=== PATIENT | male | born 1955 | race Caucasian/White ===

== ENCOUNTER 2018-04-24 01:29 | Outpatient (CLI) | payer BC, SELFPAY ==
--- NOTE | 2018-04-24 06:44 | DI.US_ITS ---
SYMPTOM/DIAGNOSIS: ABD AND RUQ PAIN, R10.11, R10.9 ABDOMEN ULTRASOUND: Routine examination. The aorta and IVC are unremarkable. The liver is normal in size. There is diffuse increased echogenicity of the liver most suggestive of hepatic steatosis. No hepatic mass is seen. The gallbladder is negative. No gallbladder wall thickening, sludge or pericholecystic fluid is seen. No gallstones are present. The common duct is within normal limits at .4 cm. The pancreas appears grossly unremarkable sonographically. The spleen is unremarkable. The kidneys are normal in size. Bilateral simple renal cysts are present. No solid renal mass or obstruction is identified. IMPRESSION: Hepatic steatosis. No evidence of cholelithiasis or biliary ductal dilatation.
== END 2018-04-24 01:49 ==
PROVIDERS: PCP Family Medicine; Visit Provider Family Medicine
DX: R10.11 Right upper quadrant pain (principal); K76.0 Fatty (change of) liver, not elsewhere classified
CPT/HCPCS: 76700

== ENCOUNTER 2018-05-15 09:43 | Outpatient (CLI) | payer BC, MEDICARE, SELFPAY ==
[2018-05-15 12:00] LABS: ALT 38 U/L (12-78); AST 28 U/L (15-37); Alkaline Phosphatase 69 U/L (46-116); Bilirubin, Direct 0.16 mg/dL (0.00-0.20); Bilirubin, Total 0.5 mg/dL (0.2-1.0); CREATININE 0.94 mg/dL (0.70-1.30); Glucose 99 mg/dL (70-100); Potassium 4.7 mmol/L (3.5-5.1); Total Protein 7.4 g/dL (6.4-8.2)
[2018-05-15 12:18] LABS: Cholesterol 157 mg/dL (50-200); HDL Cholesterol 29 mg/dL (40-60); LDL CHOLESTEROL 99 mg/dL (<100); Triglyceride 150 mg/dL (30-150)
== END 2018-05-15 10:03 ==
PROVIDERS: PCP Family Medicine; Visit Provider Family Medicine
DX: I10 Essential (primary) hypertension (principal); K76.0 Fatty (change of) liver, not elsewhere classified; Z13.220 Encounter for screening for lipoid disorders; E66.9 Obesity, unspecified
CPT/HCPCS: 36415; 80061; 80076; 82947; 83721; 82565; 84132

== ENCOUNTER 2018-11-11 09:08 | Outpatient (CLI) | payer BC, MEDICARE, SELFPAY ==
[2018-11-11 11:22] LABS: CREATININE 0.87 mg/dL (0.70-1.30); Calculated LDL 118 mg/dL; Cholesterol 165 mg/dL (50-200); HDL Cholesterol 35 mg/dL (40-60); Triglyceride 63 mg/dL (30-150)
== END 2018-11-11 09:28 ==
PROVIDERS: PCP Family Medicine; Visit Provider Family Medicine
DX: I10 Essential (primary) hypertension (principal); E78.5 Hyperlipidemia, unspecified
CPT/HCPCS: 36415; 80061; 83721; 82565

== ENCOUNTER 2019-04-20 09:31 | Outpatient (CLI) | payer BC, MEDICARE, SELFPAY ==
[2019-04-20 14:09] LABS: ESR 9 mm/hr (1-20)
[2019-04-21 11:32] LABS: Rheumatoid Factor <7.5 IU/mL (<12.5)
== END 2019-04-20 09:51 ==
PROVIDERS: PCP Family Medicine; Visit Provider Family Medicine
DX: M19.041 Primary osteoarthritis, right hand (principal); M19.042 Primary osteoarthritis, left hand; M79.645 Pain in left finger(s)
CPT/HCPCS: 36415; 85652; 86431

== ENCOUNTER 2019-05-21 01:56 | Outpatient (CLI) | payer BC, MEDICARE, SELFPAY ==
--- NOTE | 2019-05-21 06:55 | DI.US_ITS ---
EXAM: US AAA SCREENING CLINICAL HISTORY: screening for AAA,smoking history,z87.891,z00.00,encounter for annual TECHNIQUE: Ultrasound performed using standard protocol. COMPARISON: US ABDOMEN from 04/24/2018 FINDINGS: Limited abdominal ultrasound was performed for evaluation of a possible abdominal aortic aneurysm. N o abdominal aortic aneurysm seen. Maximal diameter the aorta mid to distal is about 1.9 cm. Common iliac arteries on the right and left are 11 millimeters and 14 millimeters in diameter respectively. IMPRESSION: No evidence of abdominal aortic aneurysm.
== END 2019-05-21 02:16 ==
PROVIDERS: PCP Family Medicine; Visit Provider Family Medicine
DX: Z00.00 Encounter for general adult medical examination without abnormal findings (principal); Z13.6 Encounter for screening for cardiovascular disorders; Z87.891 Personal history of nicotine dependence
CPT/HCPCS: 76706

== ENCOUNTER 2020-05-24 10:26 | Outpatient (CLI) | payer BC, MEDICARE, SELFPAY ==
[2020-05-24 13:19] LABS: ALT 30 U/L (16-63); AST 20 U/L (15-37); Albumin 4.3 g/dL (3.4-5.0); Alkaline Phosphatase 67 U/L (46-116); Bilirubin, Direct 0.13 mg/dL (0.00-0.20); Bilirubin, Total 0.6 mg/dL (0.2-1.0); CREATININE 0.9 mg/dL (0.70-1.30); Potassium 5.1 mmol/L (3.5-5.1); Total Protein 7.7 g/dL (6.4-8.2)
[2020-05-24 13:38] LABS: Calculated LDL 81 mg/dL (<100); Cholesterol 141 mg/dL (<200); HDL Cholesterol 44 mg/dL (40-60); Triglyceride 80 mg/dL (<150)
[2020-05-24 22:32] LABS: PSA, Screening 2.3 ng/mL (0.0-4.5)
== END 2020-05-24 10:27 | disposition home or self-care (01) ==
LOC: LOS 10:27
PROVIDERS: PCP Family Medicine; Visit Provider Family Medicine
DX: I10 Essential (primary) hypertension (principal); E78.5 Hyperlipidemia, unspecified; G72.89 Other specified myopathies; Z12.5 Encounter for screening for malignant neoplasm of prostate
CPT/HCPCS: 36415; 80061; 80076; 84153; 82565; 84132

== ENCOUNTER 2020-09-20 02:15 | Outpatient (CLI) | payer BC, MEDICARE, SELFPAY ==
--- NOTE | 2020-09-20 06:45 | DI.RAD_ITS ---
Exam(s) XR FOOT LT COMPLETE EXAM: XR FOOT LT COMPLETE CLINICAL HISTORY: josé midfoot pain,M79.672,M79.671. TECHNIQUE: 2D digital imaging was performed. COMPARISON: No exams were available for comparison FINDINGS: No acute fracture or dislocation is present. There are mild degenerative changes of the foot particu larly at the 1st MTP joint. No suspicious lytic or sclerotic lesion is seen. Atherosclerosis is pre sent. There is a small plantar calcaneal spur. IMPRESSION: Mild degenerative changes of the left foot. DATA REPOSITORY: RADIATION DOSE DELIVERED:
--- NOTE | 2020-09-20 06:45 | DI.RAD_ITS ---
Exam(s) XR KNEE RT 3V AP,LAT,NAPOLEON EXAM: XR KNEE RT 3V AP,LAT,NAPOLEON CLINICAL HISTORY: progressive knee pain,M25.561,M25.562. TECHNIQUE: 2D digital imaging was performed. COMPARISON: CR XR KNEE LT 3V AP,LAT,NAPOLEON from 09/20/2020 FINDINGS: Moderate degenerative changes are seen in the right knee with joint space narrowing and periarticular spurring. The findings are most marked in the medial femoral tibial joint. The bones are intact an d normally mineralized. There is a small joint effusion. Atherosclerosis. IMPRESSION: Moderate osteoarthritis of the right knee. DATA REPOSITORY: RADIATION DOSE DELIVERED:
--- NOTE | 2020-09-20 06:45 | DI.RAD_ITS ---
Exam(s) XR KNEE LT 3V AP,LAT,NAPOLEON EXAM: XR KNEE LT 3V AP,LAT,NAPOLEON CLINICAL HISTORY: josé knee pain,M25.561,M25.562. TECHNIQUE: 2D digital imaging was performed. COMPARISON: No exams were available for comparison FINDINGS: There are moderately severe degenerative changes of the left knee with joint space narrowing and flavio articular spurring. The findings are most marked in the medial femoral tibial and patellofemoral jean-pierre nt. Chondrocalcinosis is seen in the femoral tibial joint. There is no joint effusion. Atheroscler osis is present. IMPRESSION: Moderately severe osteoarthritis of the left knee. DATA REPOSITORY: RADIATION DOSE DELIVERED:
--- NOTE | 2020-09-20 06:45 | DI.RAD_ITS ---
Exam(s) XR FOOT RT COMPLETE EXAM: XR FOOT RT COMPLETE CLINICAL HISTORY: josé foot pain,M79.671,M79.672. TECHNIQUE: 2D digital imaging was performed. COMPARISON: No exams were available for comparison FINDINGS: Mild degenerative changes are seen at the 1st MTP joint with joint space narrowing and periarticular spurring. Mild degenerative changes are seen at the talonavicular joint in the articulation of the n avicular with the cuneiform. No acute fracture, dislocation or lytic or sclerotic lesion is seen. T here are dystrophic calcifications seen in the Achilles tendon. Atherosclerosis is present. IMPRESSION: Mild degenerative changes of the right foot. DATA REPOSITORY: RADIATION DOSE DELIVERED:
== END 2020-09-20 02:35 ==
PROVIDERS: PCP Family Medicine; Visit Provider Family Medicine
DX: M25.561 Pain in right knee (principal); M25.461 Effusion, right knee; M25.562 Pain in left knee; M17.0 Bilateral primary osteoarthritis of knee; M79.671 Pain in right foot; M19.071 Primary osteoarthritis, right ankle and foot; M79.672 Pain in left foot; M77.32 Calcaneal spur, left foot; M19.072 Primary osteoarthritis, left ankle and foot
CPT/HCPCS: 73562; 73630

== ENCOUNTER 2020-11-06 03:39 | Outpatient (CLI) | payer BC, MEDICARE, SELFPAY ==
[2020-11-06 08:31] LABS: HCT 45.7 % (40.0-50.0); HGB 15.6 g/dL (13.5-17.5); MCH 30.5 pg (27.0-33.0); MCHC 34.1 % (32.0-36.0); MCV 89.4 fL (80-95); MPV 9.3 fL (8.0-11.0); Platelet Count 166 10^3/uL (130-400); RBC 5.11 10^6/uL (4.36-5.78); RDW 12.1 % (11.8-14.1); RDW-SD 39.8 fL; WBC 6.25 10^3/uL (4.4-10.8)
[2020-11-06 10:07] LABS: Anion Gap 6.9 mmol/L (3-11); BUN 23 mg/dL (7-18); CO2 28.1 mmol/L (21.0-32.0); Calcium 8.7 mg/dL (8.5-10.1); Chloride 106 mmol/L (98-107); Glucose 112 mg/dL (74-106); Potassium 4.2 mmol/L (3.5-5.1); Sodium 141 mmol/L (136-145)
[2020-11-06 11:37] LABS: Source Nasal/Nares
[2020-11-06 16:50] LABS: COVID-19 PCR Negative (Negative)
== END 2020-11-06 03:40 | disposition home or self-care (01) ==
LOC: LBO 03:39
PROVIDERS: PCP Family Medicine; Visit Provider Student in an Organized Health Care Education/Training Program
DX: M25.561 Pain in right knee (principal); M25.562 Pain in left knee; M17.0 Bilateral primary osteoarthritis of knee; Z20.822 Contact with and (suspected) exposure to COVID-19; Z01.818 Encounter for other preprocedural examination; Z01.812 Encounter for preprocedural laboratory examination
CPT/HCPCS: 36415; 80048; 85027; 87635

== ENCOUNTER 2020-11-08 06:18 | Day surgery (SDC) | payer BC, MEDICARE, SELFPAY ==
[2020-11-08] VITALS (10 sets, daily range): BP systolic 99–135; BP diastolic 51–90; PULSE 43–63; RESP 14–20; TEMP 36–36.8; O2SAT 97–100; BMI 28.5
--- NOTE | 2020-11-08 06:59 | ANES.PREOP_ITS ---
General Info Date of Service Date Performed: 11/08/20 Height: 5 ft 8.75 in Weight: 87.2 kg Body Mass Index (BMI): 28.5 Surgical Procedure: Operation Date: 11/08/20 07:40 Proposed Procedures Side Surgeon p Knee Total Arthroplasty Right David Forrester MD Meds Allergies and Home Medications Allergies Allergy/AdvReac Type Severity Reaction Status Date / Time No Known Drug Allergies Allergy Verified 11/07/20 12:37 Home Medication Medication Instructions Recorded alprostadil 40 mcg intracavernosal 10 mcg IC PRN #1 each 10/15/19 kit citalopram 40 mg tablet 40 mg PO DAILY #90 tab 05/24/20 lisinopril 10 mg tablet 5 mg PO DAILY #45 tab 05/24/20 omeprazole 40 mg capsule,delayed 40 mg PO DAILY PRN #90 tab-cap 05/24/20 release trazodone 100 mg tablet 200 mg PO HS #180 tab 08/23/20 citalopram 20 mg tablet 20 mg PO DAILY #90 tab-cap 09/04/20 rosuvastatin 20 mg tablet 20 mg PO HS #90 tab 09/04/20 tadalafil 5 mg tablet 5 mg PO DAILY #90 tab-cap 09/04/20 tamsulosin 0.4 mg capsule 0.4 mg PO DAILY #90 cap 09/04/20 triamcinolone acetonide 0.5 % 1 applic TOPICAL BID PRN #30 gm 09/04/20 topical ointment sildenafil 100 mg tablet 100 mg PO DAILY PRN #6 tab 09/15/20 acetaminophen 1,000 mg PO Q8H PRN #90 tab 11/08/20 aspirin 81 mg PO BID 30 Days #60 tab 11/08/20 celecoxib [Celebrex] 200 mg PO BID #30 cap 11/08/20 docusate sodium [Colace] 100 mg PO BID #30 cap 11/08/20 gabapentin 300 mg PO QHS #14 cap 11/08/20 oxycodone 5 mg PO Q4H PRN #18 tab 11/08/20 pantoprazole 40 mg PO DAILY 30 Days #30 tab 11/08/20 Current Visit Medications: Current Medications Generic Name Dose Route Start Last Admin Trade Name Freq PRN Reason Stop Dose Admin Acetaminophen 1,000 mg 11/08/20 06:00 Acetaminophen 500 Mg Tab PO PREOP SALVATORE Celecoxib 400 mg 07/21/21 06:00 Celecoxib 200 Mg Cap PO PREOP SALVATORE Gabapentin 300 mg 11/08/20 06:00 Gabapentin 300 Mg Cap PO PREOP SALVATORE Ringer's Solution 1,000 mls @ 80 mls/hr 11/08/20 06:00 IV 12/07/20 23:59 INFUSION SALVATORE Cefazolin Sodium/Dextrose 2 gm in 50 mls @ 100 mls/hr 11/08/20 06:00 Ancef Duplex IVPB 12/07/20 23:59 PREOP SALVATORE Tranexamic Acid 1,000 mg/ 60 mls @ 360 mls/hr 11/08/20 06:00 Sodium Chloride IVPB 11/08/20 23:59 DIRECTED SALVATORE Tranexamic Acid 1,000 mg/ 60 mls @ 360 mls/hr 11/08/20 06:00 Sodium Chloride IVPB 11/08/20 23:59 DIRECTED [facility] IV Miscellaneous Supplies 1 each 11/08/20 06:00 Iv Access IV 12/07/20 23:59 DIRECTED SALVATORE Sodium Chloride 0 ml 11/08/20 06:00 Normal Saline Flush 10 Ml Syr IV 12/07/20 23:59 PRN PRN Sodium Chloride 0 ml 11/08/20 06:00 Normal Saline 10 Ml Vial IJ 12/07/20 23:59 DIRECTED PRN Sterile Water 0 ml 11/08/20 06:00 Water,Injection,Sterile 10 Ml Vial IJ 12/07/20 23:59 DIRECTED PRN PFSH Active Problems Active Problems: Problem Status Onset Code Bilateral primary osteoarthritis of knee M17.0 Bilateral foot pain M79.671, M79.672 Foot pain, left M79.672 Bilateral chronic knee pain M25.561, M25.562, G89.29 Lower urinary tract symptoms (LUTS) R39.9 Prostatitis N41.9 Hand arthritis M19.049 Hypertension I10 Peripheral neuropathy G62.9 Status post arthroscopy of shoulder 11/07/14 Z98.890 Status post rotator cuff repair 11/07/14 Z98.890 Bilateral renal cysts N28.1 Gallbladder Problem K82.9 CAD (coronary artery disease) I25.10 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 MORALES Rotator Cuff Repair 11/07/14; LEFT; DR MORALES 12/20/15; RIGHT; DR. MORALES Tobacco Smoking/Tobacco Use Status: Former Tobacco Use Passive smoking exposure: Yes Second hand exposure: Yes Alcohol Alcohol Intake: former Substance Use Substance use: Socially Substance use type: marijuana Vital Signs and Lab Results Vital Signs Most Recent Vital Signs in EMR: Most Recent Vital Signs Temp Pulse Resp BP Pulse Ox 36.6 C 57 L 16 118/70 97 11/08/20 06:30 11/08/20 06:30 11/08/20 06:30 11/08/20 06:30 11/08/20 06:30 Lab Results Blood Type / Crossmatch: No Data to Display Complete Blood Count: White Blood Count 6.25 10^3/uL (4.4-10.8) 11/06/20 08:20 11/06/20 Red Blood Count 5.11 10^6/uL (4.36-5.78) 11/06/20 08:20 11/06/20 Hemoglobin 15.6 g/dL (13.5-17.5) 11/06/20 08:20 11/06/20 Hematocrit 45.7 % (40.0-50.0) 11/06/20 08:20 11/06/20 Platelet Count 166 10^3/uL (130-400) 11/06/20 08:20 11/06/20 Complete Metabolic Panel: Sodium Level 141 mmol/L (136-145) 11/06/20 08:20 11/06/20 Potassium Level 4.2 mmol/L (3.5-5.1) 11/06/20 08:20 11/06/20 Chloride Level 106 mmol/L (98-107) 11/06/20 08:20 11/06/20 Carbon Dioxide Level 28.1 mmol/L (21.0-32.0) 11/06/20 08:20 11/06/20 Blood Urea Nitrogen 23 mg/dL (7-18) H 11/06/20 08:20 11/06/20 Creatinine 1.0 mg/dL (0.70-1.30) 11/06/20 08:20 11/06/20 Estimated GFR/1.73 m2 >= 60.00 (mL/min/1.73m2) 11/06/20 08:20 11/06/20 Calcium Level 8.7 mg/dL (8.5-10.1) 11/06/20 08:20 11/06/20 Glucose Level 112 mg/dL (74-106) H 11/06/20 08:20 11/06/20 Liver Function Panel: No Data to Display Coagulation Panel: No Data to Display Cardiac Panel: No Data to Display Arterial Blood Gas: No Data to Display Venous Blood Gas: No Data to Display Pancreas Panel: No Data to Display Thyroid Panel: No Data to Display Infectious Disease: Coronavirus (COVID-19)(PCR) Negative (Negative) 11/06/20 08:00 11/06/20 Coronavirus 2019 Source Nasal/Nares 11/06/20 08:00 11/06/20 Blood Cultures: No Data to Display Toxicology Panel: No Data to Display Anesthesia Assessment and Plan Anesthesia History Personal History: No History of Anesthesia Complications Family History: No Family History of Anesthesia Complications Exercise Tolerance Exercise Tolerance: Metabolic Equivalents>4 Pertinent Negatives Pertinent Negatives: No Symptoms of GERD, No Major Pulmonary Symptoms or Complaints and No History of CVA/TIA Cardiac & Pulmonary Exam Cardiac Exam: Normal S1/S2 Heart Sounds Pulmonary Exam: Clear Bilateral Breath Sounds Cardiac and Pulmonary Comment:: History of CAD Airway Exam Known Difficult Airway: No Mallampati Class: 2 Mouth Opening: Normal (> 3cm) Thyromental Distance: Greater than 3 cm Neck Range of Motion: Full ROM Neck Circumference: Normal Teeth Condition: Normal Dentition ASA Classification ASA Score: ASA 2 Emergency Case?: No NPO Status NPO Status: NPO Clears >2 hours, Solids >8 hours Anesthesia Plan Resuscitation Status: Full Code Anesthesia Technique: Spinal Anesthesia Airway Planned: Natural Airway Pain Management: Surgeon and patient request nerve block (Adductor Canal) Monitors Used: Standard Monitors
--- NOTE | 2020-11-08 07:22 | W.PREOPHP ---
Date of service: 11/08/20 Time of Service: : Assessment and Plan Assessment and plan (1) Bilateral primary osteoarthritis of knee: Status: Acute Assessment and plan: Alonso is a 65-year-old who has known bilateral knee osteoarthritis. His right knee is most symptomatic at this time the left knee underwent an injection a little over a month ago. In the office I fully discussed treatment options. He has been discussed these options before in the past and did not feel he was ready for knee replacement. However, he does have severe arthritis of the knees and now feels ready to proceed with knee replacement. I previously reviewed all the risk and technical features of the case. I once again reviewed the more pertinent risks to include bleeding, infection, pain, stiffness, need for repeat procedures, blood clot. Despite these risk, he elects to proceed. History of Present Illness History of Present Illness Chief Complaint: Right Knee DJD Narrative: Alonso is a 65-year-old active male who has bilateral knee osteoarthritis. He has been dealing with this knee pain for some time with conservative measures. He has contemplated surgery in the past and now feels he is ready. Please see the previous office note for complete details of the history of his knee. He denies any chest pain or shortness of breath. He does have hypertension has been diagnosed with left ventricular hypertrophy. He had a cardio angiography done which was negative for any blockages about his heart. He currently is able to ride his bike and ambulate without shortness of breath as well as climb a flight of stairs. Review of Systems All systems reviewed & are unremarkable except as noted in HPI and below PFSH Medical History Bilateral chronic knee pain Bilateral foot pain Essential hypertension Hand arthritis Hyperlipemia Peripheral neuralgia Peripheral neuropathy Tobacco dependence Surgical History Arthroscopy, Shoulder 11/07/14; LEFT; DR MORALES 12/20/15; RIGHT; DR. MORALES Rotator Cuff Repair 11/07/14; LEFT; DR MORALES 12/20/15; RIGHT; DR. MORALES Family History Mother Essential hypertension Heart disease Father Heart disease Stroke Sister Diabetes Hyperlipidemia Brother No problems noted. Grandfather Heart disease Grandfather Heart disease Grandmother Diabetes Heart disease Grandmother Heart disease Brother No problems noted. Son No problems noted. Son No problems noted. Social History Smoking/Tobacco Use Status: Former Tobacco Use tobacco type: cigarettes Quit Date: 04/21/99 Second Hand Exposure: Yes Smoking risk assessment performed?: Yes Alcohol Intake: former Drug use: Socially Substance use type: marijuana Details: Pt denies use today; t-2 Household members: spouse Housing: house Pets and animals: Yes Pets and animals: dog(s) What is your relationship status?: How often do you talk on the phone with friends or family?: three or more times per week How often do you get together with friends or relatives?: once per week Panel score (0-1 are the most socially isolated patients): 2 What type of physical activity do you participate in: none Maty/Anabaptism: Rastafarian Seatbelt use: always Helmet use: Yes Helmet use: always Drive intox or ride w/intox cdl bulk driver: No Do you feel safe at home: Yes Do you feel safe in your relationship?: Yes Meds Allergies and Home Medications Allergies Allergy/AdvReac Type Severity Reaction Status Date / Time No Known Drug Allergies Allergy Verified 11/07/20 12:37 Home Medications Medication Instructions Recorded Confirmed Type alprostadil 40 mcg intracavernosal 10 mcg IC PRN #1 each 10/15/19 11/08/20 Rx kit citalopram 40 mg tablet 40 mg PO DAILY #90 tab 05/24/20 11/08/20 Rx lisinopril 10 mg tablet 5 mg PO DAILY #45 tab 05/24/20 11/08/20 Rx omeprazole 40 mg capsule,delayed 40 mg PO DAILY PRN #90 tab-cap 05/24/20 11/08/20 Rx release trazodone 100 mg tablet 200 mg PO HS #180 tab 08/23/20 11/07/20 Rx citalopram 20 mg tablet 20 mg PO DAILY #90 tab-cap 09/04/20 11/08/20 Rx meloxicam 15 mg tablet 15 mg PO DAILY #90 tab-cap 09/04/20 11/08/20 Rx rosuvastatin 20 mg tablet 20 mg PO HS #90 tab 09/04/20 11/08/20 Rx tadalafil 5 mg tablet 5 mg PO DAILY #90 tab-cap 09/04/20 11/07/20 Rx tamsulosin 0.4 mg capsule 0.4 mg PO DAILY #90 cap 09/04/20 11/07/20 Rx triamcinolone acetonide 0.5 % 1 applic TOPICAL BID PRN #30 gm 09/04/20 11/07/20 Rx topical ointment sildenafil 100 mg tablet 100 mg PO DAILY PRN #6 tab 09/15/20 11/08/20 Rx Exam Const General: cooperative, healthy appearing, comfortable and no acute distress Nutritional Appearance: average body habitus Orientation: alert, awake and oriented x3 Resp Effort & Inspection: normal respiratory effort Auscultation: clear to auscultation bilaterally Cardio Rate: regular rate Rhythm: regular rhythm Results Last Vital Signs Temp 36.6 C 11/08/20 06:30 Pulse 57 L 11/08/20 06:30 Resp 16 11/08/20 06:30 BP 118/70 11/08/20 06:30 Pulse Ox 97 11/08/20 06:30
--- NOTE | 2020-11-08 07:26 | DSE_ITS ---
Documented by User: Josefina Hammond 11/08/20 07:37 DS: Diagnosis Discharge Diagnosis (1) Bilateral primary osteoarthritis of knee: Status: Acute Discharge Plan Disposition Patient Disposition: HOME Condition: Good Discharge Details Reason For Visit: Right knee DJD Attending Provider: David Forrester Primary Care Provider: Anshu Plaza Home Meds and New Rx's Prescriptions: New celecoxib [Celebrex] 200 mg capsule 200 mg PO BID Qty: 30 RF: 0 aspirin 81 mg tablet,delayed release (DR/EC) 81 mg PO BID 30 Days Qty: 60 RF: 0 acetaminophen 500 mg tablet 1,000 mg PO Q8H PRN Qty: 90 RF: 0 pantoprazole 40 mg tablet,delayed release (DR/EC) 40 mg PO DAILY 30 Days Qty: 30 RF: 0 docusate sodium [Colace] 100 mg capsule 100 mg PO BID Qty: 30 RF: 0 gabapentin 300 mg capsule 300 mg PO QHS Qty: 14 RF: 0 oxycodone 5 mg tablet 5 mg PO Q4H PRN (Reason: severe post-operative pain) Qty: 18 RF: 0 Continued alprostadil 40 mcg kit 10 mcg IC PRN Qty: 1 RF: 12 trazodone 100 mg tablet 200 mg PO HS Qty: 180 RF: 3 lisinopril 10 mg tablet 5 mg PO DAILY Qty: 45 RF: 3 citalopram 40 mg tablet 40 mg PO DAILY Qty: 90 RF: 3 omeprazole 40 mg capsule,delayed release(DR/EC) 40 mg PO DAILY PRN (Reason: dyspepsia) Qty: 90 RF: 3 citalopram [Celexa] 20 mg tablet 20 mg PO DAILY Qty: 90 RF: 3 rosuvastatin [Crestor] 20 mg tablet 20 mg PO HS Qty: 90 RF: 3 tadalafil [Cialis] 5 mg tablet 5 mg PO DAILY Qty: 90 RF: 3 tamsulosin 0.4 mg capsule 0.4 mg PO DAILY Qty: 90 RF: 3 triamcinolone acetonide 0.5 % ointment 1 applic Topical BID PRN (Reason: rash on elbows) Qty: 30 RF: 2 sildenafil 100 mg tablet 100 mg PO DAILY PRN (Reason: sexual activity) Qty: 6 RF: 12 Discontinued meloxicam 15 mg tablet 15 mg PO DAILY Qty: 90 RF: 3 Hold Instructions: Home Medication placed on hold at Doctor's office Discharge Instructions Additional Instructions: Total Knee Discharge Instructions Activity: The most important activity is to walk. You should try to take short walks a few times a day. It is important that when resting you work on keeping the knee straight. Avoid putting a pillow behind the knee as this will encourage flexion. Work on range of motion exercises as provided by Physical Therapy. - Start outpatient physical therapy within 2 weeks. - You should wear the JUAN CARLOS hose on both legs for 2 weeks. You may remove these at night. You may also use any compression sock in place of the JUAN CARLOS hose. Dressing: You may remove the Dexter wrap on your leg 2 days after your surgery and put on the JUAN CARLOS stocking given to you from the hospital. Keep the surgical dressing (underneath the DEXTER wrap) in place for at least one week. After the first week it may be removed and replaced with light gauze and tape or nothing. The wound and dressing may get wet after 3 days but avoid soaking the dressing or otherwise it will need to be changed. Many people prefer covering the dressing with cling wrap (saran wrap) to minimize it from getting soaked. If it gets wet, just pat dry. If it starts to peel off then it will need to be changed. Medications: - You should take Tylenol and anti-inflammatory Celebrex as your primary pain control medications. If the Celebrex is too expensive or not covered, please call the office for another alternative (Advil/Ibuprofen or Naproxen/Aleve) - You have been prescribed a stronger pain medication Oxycodone for breakthrough pain, take as needed as prescribed. - You have also been prescribed a stomach acid reduction agent Pantoprozole to help reduce stomach acid and reflux. - You have been prescribed Gabapentin to take at night for restlessness and nerve pain. - You will be taking Aspirin 81mg twice a day for DVT prevention unless instructed otherwise. - If you have constipation you should take Colace (which was prescribed) or Miralax (which you may purchase [id number]). It takes most people 3-4 days to have a bowel movement. Follow-up: 2 weeks If you have any acute concerns or questions, please do not hesitate to contact the office at [phone]. You may contact Dr. Forrester with any questions after hours through the hospital at [phone] or on his cell phone at [phone]. Stand Alone Forms: Anesthesia Discharge Inst., Yair.Nerve Block Instructions, Crutch Training Instructions Referrals: David Forrester MD [ [facility] STAFF PHYSICIAN] - 11/20/20 9:00 am Equipment/Supplies: Walker Activity:: Elevate Remove Dressings/Wound Care:: Do Not Remove Shower/Bathe:: Cover Diet:: As Tolerated Discharge Orders Discharge Orders: Discharge Order (Routine); Ordered 11/08/20 Ordered By: David Forrester DS: Data Vitals/I&O Vitals and I&O: Vital Signs Temperature 36.6 C 11/08/20 06:30 Pulse 57 L 11/08/20 06:30 Pulse Rhythm Regular 11/08/20 06:30 Respiratory Rate 16 11/08/20 06:30 Respiratory Depth Normal 11/08/20 06:30 Blood Pressure 118/70 11/08/20 06:30 Pulse Oximetry 97 11/08/20 06:30 Oxygen Delivery Method Room Air 11/08/20 06:30 Oxygen Flow Rate 0 11/08/20 06:30 Pain Level 0 11/08/20 06:30 Intake & Output 11/07/20 11/07/20 11/08/20 11:59 23:59 11:59 Weight 110.223 kg 110.223 kg 87.2 kg [facility] Medical History Bilateral chronic knee pain Bilateral foot pain Essential hypertension Hand arthritis Hyperlipemia Peripheral neuralgia Peripheral neuropathy Tobacco dependence Surgical History Arthroscopy, Shoulder 11/07/14; LEFT; DR MORALES 12/20/15; RIGHT; DR. MORALES Rotator Cuff Repair 11/07/14; LEFT; DR MORALES 12/20/15; RIGHT; DR. MORALES Family History Mother Essential hypertension Heart disease Father Heart disease Stroke Sister Diabetes Hyperlipidemia Brother No problems noted. Grandfather Heart disease Grandfather Heart disease Grandmother Diabetes Heart disease Grandmother Heart disease Brother No problems noted. Son No problems noted. Son No problems noted. Social History Smoking/Tobacco Use Status: Former Tobacco Use tobacco type: cigarettes Quit Date: 04/21/99 Second Hand Exposure: Yes Smoking risk assessment performed?: Yes Alcohol Intake: former Drug use: Socially Substance use type: marijuana Details: Pt denies use today; t-2 Household members: spouse Housing: house Pets and animals: Yes Pets and animals: dog(s) What is your relationship status?: How often do you talk on the phone with friends or family?: three or more times per week How often do you get together with friends or relatives?: once per week Panel score (0-1 are the most socially isolated patients): 2 What type of physical activity do you participate in: none Maty/Spiritism: Mandaen Seatbelt use: always Helmet use: Yes Helmet use: always Drive intox or ride w/intox front loader residential driver: No Do you feel safe at home: Yes Do you feel safe in your relationship?: Yes Documented by User: David Forrester MD 11/08/20 12:28 Date of service: 11/08/20 Time of Service: 12:27 Discharge Plan Disposition Patient Disposition: HOME Condition: Good Discharge Details Reason For Visit: Right knee DJD Attending Provider: David Forrester Primary Care Provider: Anshu Plaza Home Meds and New Rx's Prescriptions: New celecoxib [Celebrex] 200 mg capsule 200 mg PO BID Qty: 30 RF: 0 aspirin 81 mg tablet,delayed release (DR/EC) 81 mg PO BID 30 Days Qty: 60 RF: 0 acetaminophen 500 mg tablet 1,000 mg PO Q8H PRN Qty: 90 RF: 0 pantoprazole 40 mg tablet,delayed release (DR/EC) 40 mg PO DAILY 30 Days Qty: 30 RF: 0 docusate sodium [Colace] 100 mg capsule 100 mg PO BID Qty: 30 RF: 0 gabapentin 300 mg capsule 300 mg PO QHS Qty: 14 RF: 0 oxycodone 5 mg tablet 5 mg PO Q4H PRN (Reason: severe post-operative pain) Qty: 18 RF: 0 Continued alprostadil 40 mcg kit 10 mcg IC PRN Qty: 1 RF: 12 trazodone 100 mg tablet 200 mg PO HS Qty: 180 RF: 3 lisinopril 10 mg tablet 5 mg PO DAILY Qty: 45 RF: 3 citalopram 40 mg tablet 40 mg PO DAILY Qty: 90 RF: 3 omeprazole 40 mg capsule,delayed release(DR/EC) 40 mg PO DAILY PRN (Reason: dyspepsia) Qty: 90 RF: 3 citalopram [Celexa] 20 mg tablet 20 mg PO DAILY Qty: 90 RF: 3 rosuvastatin [Crestor] 20 mg tablet 20 mg PO HS Qty: 90 RF: 3 tadalafil [Cialis] 5 mg tablet 5 mg PO DAILY Qty: 90 RF: 3 tamsulosin 0.4 mg capsule 0.4 mg PO DAILY Qty: 90 RF: 3 triamcinolone acetonide 0.5 % ointment 1 applic Topical BID PRN (Reason: rash on elbows) Qty: 30 RF: 2 sildenafil 100 mg tablet 100 mg PO DAILY PRN (Reason: sexual activity) Qty: 6 RF: 12 Discontinued meloxicam 15 mg tablet 15 mg PO DAILY Qty: 90 RF: 3 Hold Instructions: Home Medication placed on hold at Doctor's office Discharge Instructions Additional Instructions: Total Knee Discharge Instructions Activity: The most important activity is to walk. You should try to take short walks a few times a day. It is important that when resting you work on keeping the knee straight. Avoid putting a pillow behind the knee as this will encourage flexion. Work on range of motion exercises as provided by Physical Therapy. - Start outpatient physical therapy within 2 weeks. - You should wear the JUAN CARLOS hose on both legs for 2 weeks. You may remove these at night. You may also use any compression sock in place of the JUAN CARLOS hose. Dressing: You may remove the Dexter wrap on your leg 2 days after your surgery and put on the JUAN CARLOS stocking given to you from the hospital. Keep the surgical dressing (underneath the DEXTER wrap) in place for at least one week. After the first week it may be removed and replaced with light gauze and tape or nothing. The wound and dressing may get wet after 3 days but avoid soaking the dressing or otherwise it will need to be changed. Many people prefer covering the dressing with cling wrap (saran wrap) to minimize it from getting soaked. If it gets wet, just pat dry. If it starts to peel off then it will need to be change d. Medications: - You should take Tylenol and anti-inflammatory Celebrex as your primary pain control medications. If the Celebrex is too expensive or not covered, please ca ll the office for another alternative (Advil/Ibuprofen or Naproxen/Aleve) - You have been prescribed a stronger pain medication Oxycodone for breakthrough pain, take as needed as prescribed. - You have also been prescribed a stomach acid reduction agent Pantoprozole to help reduce stomach acid and reflux. - You have been prescribed Gabapentin to take at night for restlessness and nerve pain. - You will be taking Aspirin 81mg twice a day for DVT prevention unless instructed otherwise. - If you have constipation you should take Colace (which was prescribed) or Miralax (which you may purchase [id number]). It takes most people 3-4 days to have a bowel movement. Follow-up: 2 weeks If you have any acute concerns or questions, please do not hesitate to contact the office at [phone]. You may contact Dr. Forrester with any questions after hours through the hospital at [phone] or on his cell phone at [phone]. Stand Alone Forms: Anesthesia Discharge Inst., Anes.Nerve Block Instructions, Crutch Training Instructions Referrals: David Forrester MD [ [facility] STAFF PHYSICIAN] - 11/20/20 9:00 am Equipment/Supplies: Walker Activity:: Elevate Remove Dressings/Wound Care:: Do Not Remove Shower/Bathe:: Cover Diet:: As Tolerated Discharge Orders Discharge Orders: Discharge Order (Routine); Ordered 11/08/20 Ordered By: David Forrester DS: Summary Time Spent with Patient providing and/or coordinating discharge services: Less than 30 minutes Status at Discharge Functional status at discharge: uses cane/walker Overall status at discharge: patient is progressing back to baseline Mental Status: mental status grossly normal Speech and Movement: speech and movement normal Mood: congruent mood Affect: normal affect Exam Psych Mental Status: mental status grossly normal Speech and Movement: speech and movement normal Mood: congruent mood Affect: normal affect [facility] Medical History Bilateral chronic knee pain Bilateral foot pain Essential hypertension Hand arthritis Hyperlipemia Peripheral neuralgia Peripheral neuropathy Tobacco dependence Surgical History Arthroscopy, Shoulder 11/07/14; LEFT; DR MORALES 12/20/15; RIGHT; DR. MORALES Rotator Cuff Repair 11/07/14; LEFT; DR MORALES 12/20/15; RIGHT; DR. MORALES Family History Mother Essential hypertension Heart disease Father Heart disease Stroke Sister Diabetes Hyperlipidemia Brother No problems noted. Grandfather Heart disease Grandfather Heart disease Grandmother Diabetes Heart disease Grandmother Heart disease Brother No problems noted. Son No problems noted. Son No problems noted. Social History Smoking/Tobacco Use Status: Former Tobacco Use tobacco type: cigarettes Quit Date: 04/21/99 Second Hand Exposure: Yes Smoking risk assessment performed?: Yes Alcohol Intake: former Drug use: Socially Substance use type: marijuana Details: Pt denies use today; t-2 Household members: spouse Housing: house Pets and animals: Yes Pets and animals: dog(s) What is your relationship status?: How often do you talk on the phone with friends or family?: three or more times per week How often do you get together with friends or relatives?: once per week Panel score (0-1 are the most socially isolated patients): 2 What type of physical activity do you participate in: none Maty/Spiritism: Mandaen Seatbelt use: always Helmet use: Yes Helmet use: always Drive intox or ride w/intox front loader residential driver: No Do you feel safe at home: Yes Do you feel safe in your relationship?: Yes
[2020-11-08] MEDS: Lactated Ringers 1,000 ML 80 ML IV (07:30)
[2020-11-08] MEDS: Acetaminophen 500 MG TAB 1000 MG PO (07:35)
[2020-11-08] MEDS: Gabapentin 300 MG CAP PO (07:36)
[2020-11-08] MEDS: Celecoxib 200 MG CAP 400 MG PO (07:36)
[2020-11-08] MEDS: ceFAZolin 2 GM/50 ML BAG IVPB (08:04)
[2020-11-08] MEDS: Normal Saline 20 ML VIAL (09:17)
[2020-11-08] MEDS: Ketorolac 30 MG/ML VIAL (09:17)
[2020-11-08] MEDS: Bupivacaine 0.25% Pres-Free 30 ML VIAL (09:17)
--- NOTE | 2020-11-08 10:10 | W.PM.OP ---
Date of service: 11/08/20 Time of Service: 09:45 Operative Note Operative Note DATE OF PROCEDURE: 11/08/20 PRE-OP DIAGNOSIS: Right Knee Osteoarthritis POST-OP DIAGNOSIS: same PROCEDURE: Right Total Knee Replacement SURGEON: David Forrester COMPOSITE MECHANIC: Josefina Hammond ANESTHESIA TYPE: Spinal Refer to Anesthesia Record ESTIMATED BLOOD LOSS: 150 PATHOLOGY: none sent TOURNIQUET TIME: 0 COMPLICATIONS: None Patient was transported to: PACU Patient's condition: stable Implants: 1. Depuy Attune Cementless Cruciate Retaining Femoral Component, Size 8 2. Depuy Attune Cementless Rotating Platform Tibial Component, Size 8 3. Depuy Attune 8x8 CR/RP Poly 4. Depuy Attune Patellar Component, Size 41 Indications: I have seen Sherman in clinic for symptoms of knee arthritis, confirmed with radiographic findings. He has exhausted nonoperative methods and was having significant limitations in daily function and desired better function and less pain. I discussed the technical details of a knee replacement. I explained the risks of the procedure to include, but not limited to, bleeding, infection, pain, stiffness, fracture, damage to nerves and vessels, damage to muscles and tendons, loosening, need for repeat procedure, blood clot and cardiopulmonary demise. Despite these risks, he elected to proceed. Findings: There was significant signs of arthritis throughout the knee, especially medially with large osteophytes. Procedure Description: Alonso was greeted in the preoperative holding area where the correct side was identified and marked. The consent was reviewed with the patient and signed. The history and physical was updated. All questions were answered. Preoperative medications were administered: Acetaminophen 1000mg, Celebrex 400mg, and Gabapentin 300mg. An adductor canal block was then administered by the anesthesia team in the PACU. Alonso was taken back to the operating room. A spinal anesthestic was then administered. The patient was placed into the supine position on the operating room table. A nonsterile tourniquet was placed high onto the leg but only used for cementing. Posts were placed for positioning during the procedure. All bony prominences were well padded. Prophylactic antibiotics in the form of Cefazolin were administered. 1g of Tranxemic Acid was given intravenously within 30 minutes of incision. The right leg was then prepped with Chloraprep and draped in a standard fashion with impervious stockinette. A second prep with Chloraprep was performed prior to application of Iodine impregnated skin protection. A timeout to confirm correct identity, side and site, procedure, allergies, anesthesia, and medical concerns was performed. With the knee in some flexion, a midline incision was made overlying the knee. Full thickness skin flaps were raised once the extensor mechanism was encountered. These were raised medially and laterally. Any bleeding was controlled with electrocautery. Once the extensor mechanism was fully exposed, a medial parapatellar arthrotomy was performed in a flexed position. All bleeding from the arthrotomy and the geniculate arteries was coagulated. A medial subperiosteal peel was performed with electrocautery to the midcoronal plane. Due to the significant varus deformity the entire medial tibial plateau was exposed. The fat pad was removed while keeping the patellar tendon protected. The anterior distal femur synovium was removed for later visualization. The ACL and PCL were resected and the anterior horn of the lateral meniscus was transected. The knee was then flexed with the patella everted. The tibial tubercle was quite distal but showed no signs of tendon avulsion. Large osteophytes from the tibia were removed. Large osteophytes from the femur were removed. Using a step drill, and based on preoperative templating, the femoral canal was entered. This was done with a step drill without any difficulty. The intramedullary distal femoral cut guide was inserted, set to a 5 degree valgus cut and 9mm cut thickness. The distal femoral cut guide was then held in position and pinned. With the soft tissues protected, the distal cut was performed. This was passed over a few times to ensure a planar cut. I then turned attention to the tibia. The extramedullary guide was placed onto the leg. The distal aspect was slid medial to adjust for position of center of ankle and stay in line with shaft of the tibia. Approximately 3-5 degrees of posterior slope was kept in the proximal cutting guide. The center of the guide was aligned with the PCL. The stylus was used to assess cut thickness. The medial side, most involved side, was set for a 2mm cut, posteromedially. This was then held in position and pinned into place with 2 additional pins and a cross pin for stability. The medial and lateral collateral ligaments were protected and the cut was performed. With this completed, it was assessed and noted to be of appropriate dimensions. The guide was removed. A spacer block was inserted and the knee was brought into extension. The 8mm spacer block provided full extension, without hyperextension and with stability of both the medial and lateral collateral ligaments was assessed. The pins from the femur and the tibia were then removed. The distal femur was then sized. The anterior stylus was placed onto the lateral ridge of the anterior femur. This indicated a size 8 femur. The external rotation of the guide was adjusted to 3 degrees to match the epicondylar axis, perpendicular to [place]?s line. The 4-in-1 cutting guide was the placed. The posterior medial femur cut was evaluated and appeared of good thickness. The spacer block was inserted underneath the cutting guide and stability was confirmed in 90 degrees of flexion. An richmond wing was used to confirm appropriate position of the anterior cut to avoid notching. This cutting guide was ensured to be flush on the cut surface and then pinned into place with headed pins. While protecting the soft tissues, quad tendon, and collateral ligaments, the anterior and posterior cuts were performed with a saw. The central two pins were removed and the posterior and anterior chamfers were cut next. The notch-cutting guide was placed. This was pinned to lateralize the femoral component as much as possible while keeping it flush on the cut surface. This was then pinned into position. A reciprocating saw was used to make the notch cut. A rasp smoothed the cut surfaces. The medial and lateral menisci were removed. A trial femoral component was then inserted, impacted down to the cut surfaces, and the lug holes were drilled. A provisional trial tibial component was placed and the knee was brought through range of motion. There was noted to be excellent extension and flexion. There was no significant instability. The patella was tracking without thumbs. A size 8mm polyethylene component provided the best range of motion and stability with less than 2mm gapping with medial and lateral stress and full extension without significant hyperextension. The tibial cut surface was fully exposed. The tibia was then sized as a 8. The tibia had been previously marked during trialing to correspond to the center of the tibial component to help with rotation. The trial was aligned to this silvia, approximately rotated to the medial 1/3rd of the tibial tubercle. The trial was pinned into place. The tibia was prepared with a reamer and a keel punch and lug holes. The knee was then brought into extension and the patella was measured as 26mm. Using the patellar clamp and cut guide, this was resected to a flat surface with at least 14mm of thickness remaining. The size 41 patella fit the best. This was oriented and then clamped into position. The lugs were drilled. The trial components were removed. The final components were opened on the back table. The periosteal and capsular tissues, especially posteriorly, around the knee were then systematically injected with a periarticular cocktail consisting of 50cc 0.25% Marcaine, 30mg Ketorolac, 20cc of Exparal and 50cc of injectable saline. The knee was thoroughly irrigated with a pulse lavage and dried. Irrisept was also used to irrigate the tissues. On the back table, with the implants opened, the cement was mixed. One batch of high viscosity cement was prepared with vacuum assistance. After the cement was ready a small amount was placed on the cut surface of the patella and the patellar button was clamped into position and held. While the cement was hardening, the cementless knee components were placed. Starting with the tibial component, the tibia was subluxed anteriorly and the lug holes of the component were lined up. The tibia was then impacted with an impactor and mallet until the tibial component was in contact with the tibia. The final polyethylene component was inserted. Then, the femoral component was inserted. The lug holes were aligned and the component was impacted into position. The knee was irrigated with Irrisept chlorhexadine solution. This was allowed to sit in the knee for 3 minutes. After the cement had finally cured, approximately 15min, the clamp was removed from the patella and the knee was taken through range of motion. The patella was tracking with a no-thumbs technique. The capsule was then reapproximated with a No. 1 Vicryl at multiple locations. The capsule was finally closed with a No. 2 Stratafix, barbed suture. The second dosing of 1g TXA was started. Deep tissues were then reapproximated with 0 Vicryl and 2-0 Vicryl. The skin was closed with a running 3-0 Monocryl in a subcuticular fashion. This was reinforced with skin glue. A Mepilex silver dressing was applied along with a [id number] OSCAR wrap. A CryoCuff was applied. Alonso was transferred to the hospital stretcher without difficulty an suffering no apparent complication. Alonso has a good prognosis. Physical therapy will start today and without restrictions, weight-bearing as tolerated. Aspirin 81mg BID will be used for DVT prophylaxis.
--- NOTE | 2020-11-08 10:56 | W.ANESPOSTOP ---
Postoperative Evaluation Date, Time and Location Date Performed: 11/08/20 Time Performed: 10:56 Patient Location: Day Surgery Unit Vital Signs Most Recent Imported Vital Signs: Most Recent Vital Signs Temp Pulse Resp BP Pulse Ox 36.4 C L 43 L 18 123/77 99 11/08/20 10:35 11/08/20 10:35 11/08/20 10:35 11/08/20 10:35 11/08/20 10:35 Pain Score Most Recent Pain Score: Most Recent Pain Score Pain Level 5 11/08/20 10:35 Assessment Mental Status: Awake (Alert & Oriented to Patient Baseline) Airway and Respiratory Function: Patent airway with normal (patient baseline) respiratory exam Cardiovascular Function: Hemodynamically Stable Hydration Status: Adequately Hydrated Nausea & Vomiting: No Nausea or Vomiting Pain: Pt. Denies Any Pain Peripheral Nerve Block: Regional nerve block not resolved at time of post operative discharge
[2020-11-08] MEDS: oxyCODONE 5 MG TAB PO ×2 (11:18→13:50)
--- NOTE | 2020-11-08 12:22 | PT.INIE ---
Date of service: 11/08/20 Time of Service: 12:22 PT Notes Visit Reasons: Right knee DJD Physical Therapy Day Surgery Initial Evaluation Date: 11/08/2020 Referring Doctor: OSVALDO Joseph PT Orders: PT CONSULT: S/P Ortho surgery Precautions: WBAT on R LE with AD. Patient Profile/Admitting Diagnosis: Sherman is a 65-year-old male with bilateral primary osteoarthritis of the right and left knees and is status post right total knee arthroplasty on postoperative day 0. PMHX: Medical History Bilateral chronic knee pain Bilateral foot pain Essential hypertension Hand arthritis Hyperlipemia Peripheral neuralgia Peripheral neuropathy Tobacco dependence Surgical History Arthroscopy, Shoulder 11/07/14; LEFT; DR MORALES 12/20/15; RIGHT; DR. MORALES Rotator Cuff Repair 11/07/14; LEFT; DR MORALES 12/20/15; RIGHT; DR. MORALES Social History/Home Situation: Patient lives with in a private home with 2-3 steps to enter with one rail. He hopes to use his camper with 4 steps to enter with a rail on one side soon. Independent with all aspects of ADLs without and AD prior to surgery. Equipment Owned/DME: None Subjective: Agreeable to PT consult. Complained of cramping in his R quadriceps with ambulation but did not limits his ambulation distance for today's consult. Denies headache, chest pain, and dizziness throughout. Objective: General Observation: OSCAR wrap to R LE. Cryocuff to R LE. TEDS on the L leg. IV access in R UE. Mental Status: A and O x 4 Pain: 3/10 in R anterior thigh ad knee ROM: Right Upper Extremity: Shoulder Flexion WFL. Shoulder abduction WFL. Elbow flexion WFL. Wrist flexion WFL. Functional opening and closing of hand WFL. Left Upper Extremity: Shoulder Flexion WFL. Shoulder abduction WFL. Elbow flexion WFL. Wrist flexion WFL. Functional opening and closing of hand WFL. Right Lower Extremity: Hip flexion WFL. Hip abduction WFL. Knee flexion 20 degrees to 100 degrees. Knee extension -20 degrees. Ankle dorsiflexion WFL. Ankle plantarflexion WFL. Left Lower Extremity: Hip flexion WFL. Hip abduction WFL. Knee flexion WFL. Ankle dorsiflexion WFL. Ankle plantarflexion WFL. Strength: Right Upper Extremity: Shoulder flexors 5/5. Shoulder abductors 5/5. Elbow flexors 5/5. Elbow extensors 5/5. Mail Manager strong. Left Upper Extremity: Shoulder flexors 5/5. Shoulder abductors 5/5. Elbow flexors 5/5. Elbow extensors 5/5. Mail Manager strong. Right Lower Extremity: Hip flexors 5/5. Hip abductors 5/5. Knee flexors 3-/5. Knee extensors 3-/5. Ankle dorsiflexors 5/5. Ankle plantarflexors 5/5. Left Lower Extremity:Hip flexors 5/5. Hip abductors 5/5. Knee flexors 5/5. Knee extensors 4/5. Ankle dorsiflexors 5/5. Ankle plantarflexors 5/5. Sensation: Intact as to pain and light pressure in B LE Bed Mobility/Transfers: Supine to sit supervision Sit to stand standby assist Stand to sit standby assist Bed to chair standby assist Gait: Guided patient through level surface ambulation 100 using front wheeled walker and through 50 feet using bilateral axillary crutches with standby assist and step through gait pattern. Stairs: Up and down three 4-inch steps in and two 6-inch steps with single-point cane and one rail requiring contact-guard assist. Step to gait pattern. No increase in pain reported. Balance: Static Sitting: Normal Dynamic Sitting: Normal Static Standing: Fair Dynamic Standing: Fair Special Tests: Mobility Limitations Standardized Measure [facility] 6 clicks basic Mobility Inpatient Short Form: Raw Score: 22 CMS Score: 21% deficit Informed Consent/Education: Patient instructed in purpose of PT consult. Packet containing TKA exercise protocol has been given to patient. Education and training on initial set of exercises that can be done at home have been completed with patient. Assessment: Sherman requires the use of bilateral axillary crutches/front-wheeled walker walker on level surfaces and single-point cane to negotiate steps with 1 rail due to postoperative status. Patient presents with clinical signs and symptoms consistent with current/admitting diagnoses that have resulted to mobility limitations, gait instability, generalized weakness, and impairment of motor control as demonstrated by the following impairment level findings: 1. Decreased strength to right right knee major muscle groups 2. Impaired standing balance 3. Limitation of joint range of motion in left knee Impairments are contributing to the following functional limitations: 1. Inability to safely ambulate without assistive device 2. Increase completion time for mobility ADL performance 3. Increased fall risk Patient is assessed as a [id number] moderate complexity based on the following: History: 65-year-old male with impairment level findings, functional limitations, and past medical history as indicated above Examination: Demonstrable impairment in strength, balance, and mobility level with underlying impairments and functional limitations as documented above Presentation: Evolving Decision Makin moderate complexity Goals: N/A. PT evaluation and 1-2 treatment sessions only for functional mobility training using recommended AD and for HEP instruction. Plan of Care/Treatment Plan: N/A. PT evaluation and 1-2 treatment session only for functional mobility training using recommended AD and for HEP instruction. DISCHARGE RECOMMENDATIONS: Home when medically cleared by orthopedic surgeon. Patient will need bilateral axillary crutches to maximize independence and reduce fall risk at home. TREATMENT CODE/TIME: 62809 x 20 minutes, 30650 x 27 minutes beginning at 12:22 PM. Thank you for the opportunity to participate in the care of this patient. Valeri Berger PT, DPT, CLT [facility] [place], [place]
--- NOTE | 2020-11-08 15:19 | W.ANESNERVE ---
Nerve Block Single Injection Procedure Date and Time Date Performed: 11/08/20 Procedure Start: 07:35 Location Where Procedure Performed Procedure Location: PACU Reason Performed: Postoperative Analgesia Requesting Provider: David Forrester Timeout Performed Timeout Performed: Yes Monitoring Used ECG, Blood Pressure and SpO2 Sterility Sterility: Hand Hygiene, Surgical Cap, Surgical Mask, Sterile Gloves and Chlorhexidine Sedation Given During Procedure Sedation Given (Indicate Dose Given): No Sedation given Patient Mental Status Patient Mental Status: Awake Nerve Block 1st Nerve Block: Laterality: Right Block Type: Adductor Canal Needle / Catheter Used: 100mm SonoPlex II Local Anesthetic Bolus (Indicate Dose Given): Lidocaine used for local infiltration of skin, Injected in 3-5ml increments after negative blood aspiration and Bupivacaine 0.25% Dose:: 15 ml Additives (Indicate Dose Given): None Ultrasound: Sterile probe cover and gel used Ultrasound Image Saved?: Yes Nerve Stimulator: Not Used Paresthesia: None Procedure Tolerated: No Complications and Patient tolerated well Procedure Outcome: Successful Performed By: Nathalie De La Rosa Supervised By: Hira Sylvester
== END 2020-11-08 14:10 | disposition home or self-care (01) ==
PROVIDERS: PCP Family Medicine; Visit Provider Student in an Organized Health Care Education/Training Program
PROC: (CPT 27447; principal; 2020-11-08 07:30)
DX: M17.0 Bilateral primary osteoarthritis of knee (principal); I10 Essential (primary) hypertension; E78.5 Hyperlipidemia, unspecified; G62.9 Polyneuropathy, unspecified; F17.210 Nicotine dependence, cigarettes, uncomplicated
CPT/HCPCS: 27447; 76942; 97162; 97530; J0690; J1885; J2001; J2370

== ENCOUNTER 2020-11-20 13:45 | Outpatient (CLI) | payer BC, MEDICARE, SELFPAY ==
--- NOTE | 2020-11-20 09:00 | DI.RAD_ITS ---
Exam(s) XR KNEE RT 1V EXAM: XR KNEE RT 1V CLINICAL HISTORY: 1ST POST OP R TKA. TECHNIQUE: 2D digital imaging was performed. COMPARISON: CR XR KNEE RT 3V AP,LAT,NAPOLEON from 09/20/2020 FINDINGS: There is satisfactory position and alignment of the components of the recently placed prosthesis. No obvious fracture or loosening evident on this single view. Vascular calcification in the popliteal artery and runoff vessels of the calf is noted indicating atherosclerotic involvement IMPRESSION: DATA REPOSITORY: RADIATION DOSE DELIVERED:
--- NOTE | 2020-11-20 09:00 | DI.RAD_ITS ---
Exam(s) XR STANDING ALIGNMENT EXAM: XR STANDING ALIGNMENT CLINICAL HISTORY: 1ST POST OP R TKA. TECHNIQUE: 2D digital imaging was performed. COMPARISON: 09/20/2020 FINDINGS: There has been interval placement of a right knee prosthesis which appears to be in satisfactory posi tion and alignment. No fracture or loosening evident. There is advanced narrowing of the medial com partment of the opposite-left knee noted. Moderate degenerative changes are noted in the hips, sligh tly more so on the left side. Ankles appear unremarkable. No osseous lesions. Vascular calcificati on the femoral arteries is noted. IMPRESSION: DATA REPOSITORY: RADIATION DOSE DELIVERED:
== END 2020-11-20 13:46 | disposition home or self-care (01) ==
LOC: DIORS 13:46
PROVIDERS: PCP Family Medicine; Referring Provider Family Medicine; Visit Provider Physician Assistant
DX: Z96.651 Presence of right artificial knee joint (principal)
CPT/HCPCS: 73560; 77073

== ENCOUNTER → 2021-01-02 14:32 | Outpatient (BNVA) | payer BC, MEDICARE, SELFPAY | PROVIDERS: PCP Family Medicine; Referring Provider Family Medicine; Visit Provider Urology | DX: R39.15 Urgency of urination (principal); N52.9 Male erectile dysfunction, unspecified | CPT/HCPCS: 99213 ==

== ENCOUNTER 2021-01-08 01:47 | Outpatient (CLI) | payer BC, MEDICARE, SELFPAY ==
[2021-01-08 10:54] LABS: Source Nasal/Nares
[2021-01-08 16:25] LABS: COVID-19 PCR Negative (Negative)
== END 2021-01-08 01:48 | disposition home or self-care (01) ==
LOC: LBO 01:48
PROVIDERS: PCP Family Medicine; Visit Provider Student in an Organized Health Care Education/Training Program
DX: Z20.822 Contact with and (suspected) exposure to COVID-19 (principal); Z01.818 Encounter for other preprocedural examination
CPT/HCPCS: 87635

== ENCOUNTER 2021-01-10 05:50 | Day surgery (SDC) | payer BC, MEDICARE, SELFPAY ==
[2021-01-10] VITALS (10 sets, daily range): BP systolic 86–135; BP diastolic 40–75; PULSE 42–76; RESP 11–49; TEMP 36–36.6; TEMPC 36.3; O2SAT 93–100; BMI 38.0
[2021-01-10] MEDS: Gabapentin 300 MG CAP PO (06:21)
[2021-01-10] MEDS: Celecoxib 200 MG CAP 400 MG PO (06:21)
[2021-01-10] MEDS: Acetaminophen 500 MG TAB 1000 MG PO (06:22)
[2021-01-10] MEDS: Lactated Ringers 1,000 ML 30 ML IV (06:50)
--- NOTE | 2021-01-10 06:52 | W.ANESPRE ---
General Info Date of Service Date Performed: 01/10/21 Height: 5 ft 9 in Weight: 117 kg Body Mass Index (BMI): 38.0 Surgical Procedure: Operation Date: 01/10/21 07:55 Proposed Procedures Side Surgeon p Knee Total Arthroplasty Left David Forrester MD Meds Allergies and Home Medications Allergies Allergy/AdvReac Type Severity Reaction Status Date / Time No Known Drug Allergies Allergy Verified 01/10/21 05:55 Home Medication Medication Instructions Recorded lisinopril 10 mg tablet 5 mg PO DAILY #45 tab 05/24/20 omeprazole 40 mg capsule,delayed 40 mg PO DAILY PRN #90 tab-cap 05/24/20 release trazodone 100 mg tablet 200 mg PO HS #180 tab 08/23/20 citalopram 20 mg tablet 20 mg PO DAILY #90 tab-cap 09/04/20 rosuvastatin 20 mg tablet 20 mg PO HS #90 tab 09/04/20 tamsulosin 0.4 mg capsule 0.4 mg PO DAILY #90 cap 09/04/20 triamcinolone acetonide 0.5 % 1 applic TOPICAL BID PRN #30 gm 09/04/20 topical ointment sildenafil 100 mg tablet 100 mg PO DAILY PRN #6 tab 09/15/20 acetaminophen 1,000 mg PO Q8H PRN #90 tab 11/08/20 docusate sodium [Colace] 100 mg PO BID #30 cap 11/08/20 gabapentin 300 mg PO QHS #14 cap 11/08/20 alprostadil 40 mcg intracavernosal 20 mcg IC PRN #1 ea 01/02/21 kit tadalafil 5 mg tablet 5 mg PO DAILY #90 tab-cap 01/02/21 celecoxib 200 mg capsule 200 mg PO BID #180 cap 01/03/21 Current Visit Medications: Current Medications Generic Name Dose Route Start Last Admin Trade Name Freq PRN Reason Stop Dose Admin Acetaminophen 1,000 mg 01/10/21 06:00 01/10/21 06:22 Acetaminophen 500 Mg Tab PO 01/10/21 18:00 1,000 mg PREOP SALVATORE Administration Celecoxib 400 mg 01/10/21 06:00 01/10/21 06:21 Celecoxib 200 Mg Cap PO 01/10/21 18:00 400 mg PREOP SALVATORE Administration Gabapentin 300 mg 01/10/21 06:00 01/10/21 06:21 Gabapentin 300 Mg Cap PO 01/10/21 18:00 300 mg PREOP SALVATORE Administration Tranexamic Acid 1,000 mg/ 60 mls @ 360 mls/hr 01/10/21 06:00 Sodium Chloride IVPB 01/10/21 18:00 PREOP SALVATORE Tranexamic Acid 1,000 mg/ 60 mls @ 360 mls/hr 01/10/21 06:00 Sodium Chloride IVPB 01/10/21 18:00 DIRECTED SALVATORE Ringer's Solution 1,000 mls @ 80 mls/hr 01/10/21 06:00 IV 02/08/21 23:59 INFUSION SALVATORE Cefazolin Sodium 2,000 mg/ 100 mls @ 200 mls/hr 01/10/21 06:00 Sodium Chloride IV 01/10/21 23:59 PREOP SALVATORE IV Miscellaneous Supplies 1 each 01/10/21 06:00 Iv Access IV 02/08/21 23:59 DIRECTED SALVATORE Sodium Chloride 0 ml 01/10/21 06:00 Normal Saline Flush 10 Ml Syr IV 02/08/21 23:59 PRN PRN Sodium Chloride 0 ml 01/10/21 06:00 Normal Saline 10 Ml Vial IJ 02/08/21 23:59 DIRECTED PRN Sterile Water 0 ml 01/10/21 06:00 Water,Injection,Sterile 10 Ml Vial IJ 02/08/21 23:59 DIRECTED PRN PFSH Active Problems Active Problems: Problem Status Onset Code History of total right knee replacement 11/08/20 Z96.651 Bilateral primary osteoarthritis of knee M17.0 Bilateral foot pain M79.671, M79.672 Foot pain, left M79.672 Bilateral chronic knee pain M25.561, M25.562, G89.29 Lower urinary tract symptoms (LUTS) R39.9 Prostatitis N41.9 Hand arthritis M19.049 Hypertension I10 Peripheral neuropathy G62.9 Status post arthroscopy of shoulder 11/07/14 Z98.890 Status post rotator cuff repair 11/07/14 Z98.890 Bilateral renal cysts N28.1 Gallbladder Problem K82.9 CAD (coronary artery disease) I25.10 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 MORALES History of total right knee replacement (11/08/20) DOS: 11/08/20 Rotator Cuff Repair 11/07/14; LEFT; DR MORALES 12/20/15; RIGHT; DR. MORALES Tobacco Smoking/Tobacco Use Status: Former Tobacco Use Passive smoking exposure: Yes Second hand exposure: Yes Alcohol Alcohol Intake: former Substance Use Substance use: Socially Substance use type: marijuana Vital Signs and Lab Results Vital Signs Most Recent Vital Signs in EMR: Most Recent Vital Signs Temp Resp BP Pulse Ox 36.6 C 49 H 135/75 100 01/10/21 06:00 01/10/21 06:00 01/10/21 06:00 01/10/21 06:00 Lab Results Blood Type / Crossmatch: No Data to Display Complete Blood Count: No Data to Display Complete Metabolic Panel: No Data to Display Liver Function Panel: No Data to Display Coagulation Panel: No Data to Display Cardiac Panel: No Data to Display Arterial Blood Gas: No Data to Display Venous Blood Gas: No Data to Display Pancreas Panel: No Data to Display Thyroid Panel: No Data to Display Infectious Disease: Coronavirus (COVID-19)(PCR) Negative (Negative) 01/08/21 09:28 01/08/21 Coronavirus 2019 Source Nasal/Nares 01/08/21 09:28 01/08/21 Blood Cultures: No Data to Display Toxicology Panel: No Data to Display Imaging and Studies Imaging and Studies Echocardiogram Summary: July 11, 2010 EF 65% No valvular anomolies Anesthesia Assessment and Plan Anesthesia History Personal History: No History of Anesthesia Complications Family History: No Family History of Anesthesia Complications Exercise Tolerance Exercise Tolerance: Metabolic Equivalents>4 Pertinent Negatives Pertinent Negatives: No Symptoms of GERD, No Major Cardiovascular Symptoms or Complaints, No Major Pulmonary Symptoms or Complaints and No History of CVA/TIA Cardiac & Pulmonary Exam Cardiac Exam: Normal S1/S2 Heart Sounds Pulmonary Exam: Clear Bilateral Breath Sounds Airway Exam Known Difficult Airway: No Mallampati Class: 2 Mouth Opening: Normal (> 3cm) Thyromental Distance: Greater than 3 cm Neck Range of Motion: Full ROM Neck Circumference: Normal Teeth Condition: Normal Dentition ASA Classification ASA Score: ASA 2 Emergency Case?: No NPO Status NPO Status: NPO Clears >2 hours, Solids >8 hours Anesthesia Plan Resuscitation Status: Full Code Anesthesia Technique: Spinal Anesthesia Airway Planned: Natural Airway Pain Management: Surgeon and patient request nerve block (Adductor) Monitors Used: Standard Monitors
--- NOTE | 2021-01-10 07:23 | W.PREOPHP ---
Date of service: 01/10/21 Time of Service: 07:23 Assessment and Plan Assessment and plan (1) Bilateral primary osteoarthritis of knee: Status: Acute Assessment and plan: Alonso is a 65-year-old who is status post right knee replacement is doing very well. He is here today for his left knee. He feels that the left knee is now limiting his progress and is causing more pain than the right. Once again I reviewed the risk of the procedure with him to include bleeding, infection, pain, stiffness, loosening, fracture, blood clot, need for repeat procedures. Despite these risk, he elects to proceed. History of Present Illness History of Present Illness Chief Complaint: Left Knee DJD Narrative: Alonso is a 65-year-old who is status post right knee replacement almost 2 months ago. He is doing well with the right knee. He continues have pain about the left knee with known arthritis. He is here today for a left knee replacement. He has been seen previously in the office where this diagnosis was confirmed. He denies any sick contacts. No chest pain or shortness of breath. No sick contacts. He tolerated the previous procedure very well without complication. Review of Systems All systems reviewed & are unremarkable except as noted in HPI and below PFSH Medical History Bilateral chronic knee pain Bilateral foot pain Essential hypertension Hand arthritis Hyperlipemia Peripheral neuralgia Peripheral neuropathy Tobacco dependence Surgical History Arthroscopy, Shoulder 11/07/14; LEFT; DR MORALES 12/20/15; RIGHT; DR. MORALES History of total right knee replacement (11/08/20) DOS: 11/08/20 Rotator Cuff Repair 11/07/14; LEFT; DR MORALES 12/20/15; RIGHT; DR. MORALES Family History Mother Essential hypertension Heart disease Father Heart disease Stroke Sister Diabetes Hyperlipidemia Brother No problems noted. Grandfather Heart disease Grandfather Heart disease Grandmother Diabetes Heart disease Grandmother Heart disease Brother No problems noted. Son No problems noted. Son No problems noted. Social History Smoking/Tobacco Use Status: Former Tobacco Use tobacco type: cigarettes Quit Date: 04/21/99 Second Hand Exposure: Yes Smoking risk assessment performed?: Yes Alcohol Intake: former Drug use: Socially Substance use type: marijuana Household members: spouse Housing: house Pets and animals: Yes Pets and animals: dog(s) What is your relationship status?: How often do you talk on the phone with friends or family?: three or more times per week How often do you get together with friends or relatives?: once per week Panel score (0-1 are the most socially isolated patients): 2 What type of physical activity do you participate in: none Maty/Christianity: Pentecostal Seatbelt use: always Helmet use: Yes Helmet use: always Drive 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 Do you feel safe at home: Yes Do you feel safe in your relationship?: Yes Meds Allergies and Home Medications Allergies Allergy/AdvReac Type Severity Reaction Status Date / Time No Known Drug Allergies Allergy Verified 01/10/21 05:55 Home Medications Medication Instructions Recorded Confirmed Type lisinopril 10 mg tablet 5 mg PO DAILY #45 tab 05/24/20 01/10/21 Rx omeprazole 40 mg capsule,delayed 40 mg PO DAILY PRN #90 tab-cap 05/24/20 01/10/21 Rx release trazodone 100 mg tablet 200 mg PO HS #180 tab 08/23/20 01/10/21 Rx citalopram 20 mg tablet 20 mg PO DAILY #90 tab-cap 09/04/20 01/10/21 Rx rosuvastatin 20 mg tablet 20 mg PO HS #90 tab 09/04/20 01/10/21 Rx tamsulosin 0.4 mg capsule 0.4 mg PO DAILY #90 cap 09/04/20 01/10/21 Rx triamcinolone acetonide 0.5 % 1 applic TOPICAL BID PRN #30 gm 09/04/20 01/08/21 Rx topical ointment sildenafil 100 mg tablet 100 mg PO DAILY PRN #6 tab 09/15/20 01/08/21 Rx acetaminophen 1,000 mg PO Q8H PRN #90 tab 11/08/20 01/08/21 Rx docusate sodium [Colace] 100 mg PO BID #30 cap 11/08/20 01/08/21 Rx gabapentin 300 mg PO QHS #14 cap 11/08/20 01/04/21 Rx alprostadil 40 mcg intracavernosal 20 mcg IC PRN #1 ea 01/02/21 01/08/21 Rx kit tadalafil 5 mg tablet 5 mg PO DAILY #90 tab-cap 01/02/21 01/10/21 Rx celecoxib 200 mg capsule 200 mg PO BID #180 cap 01/03/21 01/10/21 Rx Exam Narrative Exam Narrative: Sitting up in the hospital stretcher. Mild varus deformity to left knee. Pain over the medial joint line. No overlying skin changes or no signs of infection. Resp Auscultation: clear to auscultation bilaterally Cardio Rate: regular rate Rhythm: regular rhythm Results Last Vital Signs Temp 36.6 C 01/10/21 06:00 Resp 49 H 01/10/21 06:00 BP 135/75 01/10/21 06:00 Pulse Ox 100 01/10/21 06:00
[2021-01-10] MEDS: ceFAZolin 2,000 MG in Normal Saline 100 ML 200 MG IV (08:00)
--- NOTE | 2021-01-10 08:12 | W.ANESNERVE ---
Nerve Block Single Injection Procedure Date and Time Date Performed: 01/10/21 Procedure Start: 07:33 Location Where Procedure Performed Procedure Location: PACU Reason Performed: Postoperative Analgesia Requesting Provider: David Forrester Timeout Performed Timeout Performed: Yes Monitoring Used ECG, Blood Pressure, SpO2 and ETCO2 Sterility Sterility: Hand Hygiene, Surgical Cap, Surgical Mask, Sterile Gloves, Sterile Drape/Sheet, Eye Protection and Chlorhexidine Sedation Given During Procedure Sedation Given (Indicate Dose Given): Versed IV Dose:: 2 mg Patient Mental Status Patient Mental Status: Sedate with meaningful communication Nerve Block 1st Nerve Block: Laterality: Left Block Type: Adductor Canal Needle / Catheter Used: 100mm SonoPlex II Local Anesthetic Bolus (Indicate Dose Given): Lidocaine used for local infiltration of skin (1 cc 2% lidocaine) and Bupivacaine 0.25% Dose:: 20 cc Additives (Indicate Dose Given): None Ultrasound: Sterile probe cover and gel used Ultrasound Image Saved?: Yes Nerve Stimulator: Not Used Paresthesia: None Procedure Tolerated: No Complications and Patient tolerated well Procedure Outcome: Successful Performed By: Maggie
[2021-01-10] MEDS: Ketorolac 30 MG/ML VIAL (08:16)
[2021-01-10] MEDS: Normal Saline 20 ML VIAL (08:16)
[2021-01-10] MEDS: Bupivacaine 0.25% Pres-Free 30 ML VIAL ×2 (08:16)
--- NOTE | 2021-01-10 09:53 | W.PM.DSUDISC ---
Documented by User: Josefina Manish 01/10/21 09:59 Discharge Plan Disposition Patient Disposition: HOME Condition: Good Discharge Details Attending Provider: David Forrester Primary Care Provider: Anshu Plaza Home Meds and New Rx's Prescriptions: New celecoxib [Celebrex] 200 mg capsule 200 mg PO BID Qty: 30 RF: 0 aspirin 81 mg tablet,delayed release (DR/EC) 81 mg PO BID 30 Days Qty: 60 RF: 0 acetaminophen 500 mg tablet 500 mg PO Q6H PRN (Reason: pain) Qty: 60 RF: 2 pantoprazole 40 mg tablet,delayed release (DR/EC) 40 mg PO DAILY 30 Days Qty: 30 RF: 0 docusate sodium [Colace] 100 mg capsule 100 mg PO BID Qty: 30 RF: 0 gabapentin 300 mg capsule 300 mg PO QHS Qty: 14 RF: 0 oxycodone 5 mg tablet 5 mg PO Q4H PRN (Reason: severe post-operative pain) Qty: 18 RF: 0 Continued trazodone 100 mg tablet 200 mg PO HS Qty: 180 RF: 3 lisinopril 10 mg tablet 5 mg PO DAILY Qty: 45 RF: 3 omeprazole 40 mg capsule,delayed release(DR/EC) 40 mg PO DAILY PRN (Reason: dyspepsia) Qty: 90 RF: 3 alprostadil 40 mcg kit 20 mcg IC PRN Qty: 1 RF: 12 tadalafil [Cialis] 5 mg tablet 5 mg PO DAILY Qty: 90 RF: 3 citalopram [Celexa] 20 mg tablet 20 mg PO DAILY Qty: 90 RF: 3 rosuvastatin [Crestor] 20 mg tablet 20 mg PO HS Qty: 90 RF: 3 tamsulosin 0.4 mg capsule 0.4 mg PO DAILY Qty: 90 RF: 3 triamcinolone acetonide 0.5 % ointment 1 applic Topical BID PRN (Reason: rash on elbows) Qty: 30 RF: 2 sildenafil 100 mg tablet 100 mg PO DAILY PRN (Reason: sexual activity) Qty: 6 RF: 12 Discontinued celecoxib [Celebrex] 200 mg capsule 200 mg PO BID Qty: 180 RF: 1 acetaminophen 500 mg tablet 1,000 mg PO Q8H PRN Qty: 90 RF: 0 docusate sodium [Colace] 100 mg capsule 100 mg PO BID Qty: 30 RF: 0 gabapentin 300 mg capsule 300 mg PO QHS Qty: 14 RF: 0 Discharge Instructions Additional Instructions: Total Knee Discharge Instructions Activity: The most important activity is to walk. You should try to take short walks a few times a day. It is important that when resting you work on keeping the knee straight. Avoid putting a pillow behind the knee as this will encourage flexion. Work on range of motion exercises as provided by Physical Therapy. If you have the Quad[employer] bike coming, this will be your primary tool for exercise after the knee replacement. You should use it and follow the directions for the knee. Utilize the other exercises sparingly based on your symptoms. - Start outpatient physical therapy within 2 weeks. - You should wear the JUAN CARLOS hose on both legs for 2 weeks. You may remove these at night. You may also use any compression sock in place of the JUAN CARLOS hose. - Utilize [employer] to review exercises, see videos on exercises and obtain basic information pertaining to your surgery and your recovery. Dressing: Remove the Dexter wrap by 2 days after your surgery and put on the JUAN CARLOS stocking given to you from the hospital. Keep the surgical dressing (underneath the DEXTER wrap) in place for at least one week. After the first week it may be removed and replaced with light gauze and tape or nothing. The wound and dressing may get wet after 3 days but avoid soaking the dressing or otherwise it will need to be changed. Many people prefer covering the dressing with cling wrap (saran wrap) to minimize it from getting soaked. If it gets wet, just pat dry. If it starts to peel off then it will need to be changed. Medications: - You should take Tylenol and anti-inflammatory Celebrex as your primary pain control medications. If the Celebrex is too expensive or not covered, please call the office for another alternative (Advil/Ibuprofen or Naproxen/Aleve) - You have been prescribed a stronger pain medication Oxycodone for breakthrough pain, take as needed as prescribed. - You have also been prescribed a stomach acid reduction agent Pantoprozole to help reduce stomach acid and reflux. You do not need to take this medication if you prefer to continue with your omeprazole - take either medication. - You have been prescribed Gabapentin to take at night for restlessness and nerve pain. - You will be taking Aspirin 81mg twice a day for DVT prevention unless instructed otherwise. - If you have constipation you should take Colace (which was prescribed) or Miralax (which you can purchase [id number]). It takes most people 3-4 days to have a bowel movement. Follow-up: 2 weeks If you have any acute concerns or questions, please do not hesitate to contact the office at [phone]. You may contact Dr. Forrester with any questions after hours through the hospital at [phone] or on his cell phone at [phone]. Stand Alone Forms: Anes.Nerve Block Instructions Referrals: David Forrester MD [[facility] STAFF PHYSICIAN] - Equipment/Supplies: Walker Activity:: Elevate Remove Dressings/Wound Care:: Do Not Remove Shower/Bathe:: Cover Diet:: As Tolerated Discharge Orders Discharge Orders: Discharge Order (Routine); Ordered 01/10/21 Ordered By: David Forrester DS: Diagnosis Discharge Diagnosis (1) Left knee DJD: Status: Acute Documented by User: David Forrester MD 01/10/21 13:08 Discharge Plan Disposition Patient Disposition: HOME Condition: Good Discharge Details Attending Provider: David Forrester Primary Care Provider: Anshu Plaza Home Meds and New Rx's Prescriptions: New celecoxib [Celebrex] 200 mg capsule 200 mg PO BID Qty: 30 RF: 0 aspirin 81 mg tablet,delayed release (DR/EC) 81 mg PO BID 30 Days Qty: 60 RF: 0 acetaminophen 500 mg tablet 500 mg PO Q6H PRN (Reason: pain) Qty: 60 RF: 2 pantoprazole 40 mg tablet,delayed release (DR/EC) 40 mg PO DAILY 30 Days Qty: 30 RF: 0 docusate sodium [Colace] 100 mg capsule 100 mg PO BID Qty: 30 RF: 0 gabapentin 300 mg capsule 300 mg PO QHS Qty: 14 RF: 0 oxycodone 5 mg tablet 5 mg PO Q4H PRN (Reason: severe post-operative pain) Qty: 18 RF: 0 Continued trazodone 100 mg tablet 200 mg PO HS Qty: 180 RF: 3 lisinopril 10 mg tablet 5 mg PO DAILY Qty: 45 RF: 3 omeprazole 40 mg capsule,delayed release(DR/EC) 40 mg PO DAILY PRN (Reason: dyspepsia) Qty: 90 RF: 3 alprostadil 40 mcg kit 20 mcg IC PRN Qty: 1 RF: 12 tadalafil [Cialis] 5 mg tablet 5 mg PO DAILY Qty: 90 RF: 3 citalopram [Celexa] 20 mg tablet 20 mg PO DAILY Qty: 90 RF: 3 rosuvastatin [Crestor] 20 mg tablet 20 mg PO HS Qty: 90 RF: 3 tamsulosin 0.4 mg capsule 0.4 mg PO DAILY Qty: 90 RF: 3 triamcinolone acetonide 0.5 % ointment 1 applic Topical BID PRN (Reason: rash on elbows) Qty: 30 RF: 2 sildenafil 100 mg tablet 100 mg PO DAILY PRN (Reason: sexual activity) Qty: 6 RF: 12 Discontinued celecoxib [Celebrex] 200 mg capsule 200 mg PO BID Qty: 180 RF: 1 acetaminophen 500 mg tablet 1,000 mg PO Q8H PRN Qty: 90 RF: 0 docusate sodium [Colace] 100 mg capsule 100 mg PO BID Qty: 30 RF: 0 gabapentin 300 mg capsule 300 mg PO QHS Qty: 14 RF: 0 Discharge Instructions Additional Instructions: Total Knee Discharge Instructions Activity: The most important activity is to walk. You should try to take short walks a few times a day. It is important that when resting you work on keeping the knee straight. Avoid putting a pillow behind the knee as this will encourage flexion. Work on range of motion exercises as provided by Physical Therapy. If you have the [employer] bike coming, this will be your primary tool for exercise after the knee replacement. You should use it and follow the directions for the knee. Utilize the other exercises sparingly based on your symptoms. - Start outpatient physical therapy within 2 weeks. - You should wear the JUAN CARLOS hose on both legs for 2 weeks. You may remove these at night. You may also use any compression sock in place of the JUAN CARLOS hose. - Utilize [employer] to review exercises, see videos on exercises and obtain basic information pertaining to your surgery and your recovery. Dressing: Remove the Dexter wrap by 2 days after your surgery and put on the JUAN CARLOS stocking given to you from the hospital. Keep the surgical dressing (underneath the DEXTER wrap) in place for at least one week. After the first week it may be removed and replaced with light gauze and tape or nothing. The wound and dressing may get wet after 3 days but avoid soaking the dressing or otherwise it will need to be changed. Many people prefer covering the dressing with cling wrap (saran wrap) to minimize it from getting soaked. If it gets wet, just pat dry. If it starts to peel off then it will need to be changed. Medications: - You should take Tylenol and anti-inflammatory Celebrex as your primary pain control medications. If the Celebrex is too expensive or not covered, please call the office for another alternative (Advil/Ibuprofen or Naproxen/Aleve) - You have been prescribed a stronger pain medication Oxycodone for breakthrough pain, take as needed as prescribed. - You have also been prescribed a stomach acid reduction agent Pantoprozole to help reduce stomach acid and reflux. You do not need to take this medication if you prefer to continue with your omeprazole - take either medication. - You have been prescribed Gabapentin to take at night for restlessness and nerve pain. - You will be taking Aspirin 81mg twice a day for DVT prevention unless instructed otherwise. - If you have constipation you should take Colace (which was prescribed) or Miralax (which you can purchase [id number]). It takes most people 3-4 days to have a bowel movement. Follow-up: 2 weeks If you have any acute concerns or questions, please do not hesitate to contact the office at [phone]. You may contact Dr. Forrester with any questions after hours through the hospital at [phone] or on his cell phone at [phone]. Stand Alone Forms: Anes.Nerve Block Instructions Referrals: David Forrester MD [ [facility] STAFF PHYSICIAN] - Equipment/Supplies: Walker Activity:: Elevate Remove Dressings/Wound Care:: Do Not Remove Shower/Bathe:: Cover Diet:: As Tolerated Discharge Orders Discharge Orders: Discharge Order (Routine); Ordered 01/10/21 Ordered By: David Forrester
--- NOTE | 2021-01-10 11:36 | W.ANESPOSTOP ---
Postoperative Evaluation Date, Time and Location Date Performed: 01/10/21 Time Performed: 11:36 Patient Location: Day Surgery Unit Vital Signs Most Recent Imported Vital Signs: Most Recent Vital Signs Temp Pulse Resp BP Pulse Ox 36 C L 50 L 14 91/51 L 98 01/10/21 11:00 01/10/21 11:00 01/10/21 11:00 01/10/21 11:00 01/10/21 11:00 Most Recent Manually Entered Vital Signs: Adult Blood Pressure: 109/72 Heart Rate: 76 Respirations: 18 Oxygen Saturation (%): 95 Temperature (C): 36.3 C Pain Score (0-10 Scale): 0 Pain Score Most Recent Pain Score: Most Recent Pain Score Pain Level 0 01/10/21 11:00 Assessment Mental Status: Awake (Alert & Oriented to Patient Baseline) Airway and Respiratory Function: Patent airway with normal (patient baseline) respiratory exam Cardiovascular Function: Hemodynamically Stable Hydration Status: Adequately Hydrated Nausea & Vomiting: No Nausea or Vomiting Pain: Pt. Denies Any Pain Peripheral Nerve Block: Regional nerve block not resolved at time of post operative discharge
--- NOTE | 2021-01-10 12:15 | PT.INIE ---
Date of service: 01/10/21 Time of Service: 12:15 PT Notes Physical Therapy Day Surgery Initial Evaluation Date: 01/10/2021 Referring Doctor: OSVALDO Joseph PT Orders: PT CONSULT: S/P Ortho surgery Precautions: WBAT on L LE with AD. 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 PMHX: Medical History Bilateral chronic knee pain Bilateral foot pain Essential hypertension Hand arthritis Hyperlipemia Peripheral neuralgia Peripheral neuropathy Tobacco dependence Surgical History Arthroscopy, Shoulder 11/07/14; LEFT; DR MORALES 12/20/15; RIGHT; DR. MORALES History of total right knee replacement (11/08/20) DOS: 11/08/20 Rotator Cuff Repair 11/07/14; LEFT; DR MORALES 12/20/15; RIGHT; DR. MORALES Social History/Home Situation: Patient lives with in a private home with 2-3 steps to enter with one rail. He hopes to use his camper with 4 steps to enter with a rail on one side as soon as she is able. Independent with all aspects of ADLs without and AD prior to surgery. Equipment Owned/DME: [employer] Subjective: Agreeable to PT consult. Reports numbness in the L knee. Denies headache, chest pain, and dizziness. Objective: General Observation: OSCAR wrap to R LE. Cryocuff to L LE. TEDS on the R leg. IV access in L UE. Mental Status: A and O x 4 Pain: Denies ROM: Right Lower Extremity: Hip flexion WFL. Hip abduction WFL. Knee flexion about 5 degrees to 120 degrees. Knee extension -5 degrees. Ankle dorsiflexion WFL. Ankle plantarflexion WFL. Left Lower Extremity: Hip flexion WFL. Hip abduction WFL. Knee flexion 0 to 100 degrees. Knee extension 100 degrees to 0 degrees ankle dorsiflexion WFL. Ankle plantarflexion WFL. Strength: Right Lower Extremity: Hip flexors 5/5. Hip abductors 5/5. Knee flexors 3-/5. Knee extensors 3-/5. Ankle dorsiflexors 5/5. Ankle plantarflexors 5/5. Left Lower Extremity: Hip flexors 4/5. Hip abductors 5/5. Knee flexors 3-5. Knee extensors 3-/5. Ankle dorsiflexors 5/5. Ankle plantarflexors 5/5. Sensation: Numbness in anterior L knee Bed Mobility/Transfers: Supine to sit independent Sit to stand standby assist Stand to sit standby assist Bed to chair standby assist Gait: Guided patient through level surface ambulation 100 using front-wheeled walker with standby assist and step through gait pattern. Decreased quad activation seen with L knee mildly giving way x 3 but with no LOB. Stairs: Patient declined this as he still remembers the safe technique from his previous TKA. Balance: Static Sitting: Normal Dynamic Sitting: Normal Static Standing: Fair Dynamic Standing: Fair Special Tests: Mobility Limitations Standardized Measure [facility] AM-PAC 6 clicks basic Mobility Inpatient Short Form: Raw Score: 23 CMS Score: 11% deficit Informed Consent/Education: Patient instructed in purpose of PT consult. Packet containing TKA exercise protocol has been given to patient. Education and training on initial set of exercises that can be done at home have been completed with patient. Assessment: Sherman requires the use of bilateral axillary crutches/front-wheeled walker walker on level surfaces. Patient presents with clinical signs and symptoms consistent with current/admitting diagnoses that have resulted to mobility limitations, gait instability, generalized weakness, and impairment of motor control as demonstrated by the following impairment level findings: 1. Decreased strength to left right knee major muscle groups 2. Impaired standing balance 3. Limitation of joint range of motion in left knee Impairments are contributing to the following functional limitations: 1. Inability to safely ambulate without assistive device 2. Increase completion time for mobility ADL performance 3. Increased fall risk Patient is assessed as a [id number] moderate complexity based on the following: History: 65-year-old male with impairment level findings, functional limitations, and past medical history as indicated above Examination: Demonstrable impairment in strength, balance, and mobility level with underlying impairments and functional limitations as documented above Presentation: Evolving Decision Makin moderate complexity Goals: N/A. PT evaluation and 1-2 treatment sessions only for functional mobility training using recommended AD and for HEP instruction. Plan of Care/Treatment Plan: N/A. PT evaluation and 1-2 treatment session only for functional mobility training using recommended AD and for HEP instruction. DISCHARGE RECOMMENDATIONS: Home when medically cleared by orthopedic surgeon. Outpatient physical therapy services in order to facilitate return to independent community ambulation without an assistive device. TREATMENT CODE/TIME: 05311 x 25 minutes beginning at 12:15 PM. Thank you for the opportunity to participate in the care of this patient. Valeri Berger PT, DPT, CLT [facility] [place], [place]
--- NOTE | 2021-01-10 13:09 | W.PM.OP ---
Date of service: 01/10/21 Time of Service: 09:47 Operative Note Operative Note DATE OF PROCEDURE: 01/10/21 PRE-OP DIAGNOSIS: Left Knee Osteoarthritis POST-OP DIAGNOSIS: same PROCEDURE: Left Total Knee Replacement SURGEON: David Forrester GLASS BLOCK INSTALLER: Josefina Hammond ANESTHESIA TYPE: Spinal Refer to Anesthesia Record ESTIMATED BLOOD LOSS: 300 PATHOLOGY: none sent TOURNIQUET TIME: 0 COMPLICATIONS: None Patient was transported to: PACU Patient's condition: stable Implants: 1. Depuy Attune Cementless Cruciate Retaining Femoral Component, Size 9 2. Depuy Attune Cementless Rotating Platform Tibial Component, Size 8 3. Depuy Attune 9x7mm CR/RP Poly 4. Depuy Attune Patellar Component, Size 41 Indications: I have seen Alonso in clinic for symptoms of knee arthritis, confirmed with radiographic findings. He has exhausted nonoperative methods and was having significant limitations in daily function and desired better function and less pain. He underwent a knee replacement on the right side with excellent results, thus he desired to proceed with a left knee replacement. I discussed the technical details of a knee replacement. I explained the risks of the procedure to include, but not limited to, bleeding, infection, pain, stiffness, fracture, damage to nerves and vessels, damage to muscles and tendons, loosening, need for repeat procedure, blood clot and cardiopulmonary demise. Despite these risks, Alonso elected to proceed. Findings: There was significant signs of arthritis throughout the knee. Procedure Description: Alonso was greeted in the preoperative holding area where the correct side was identified and marked. The consent was reviewed with the patient and signed. The history and physical was updated. All questions were answered. Preoperative medications were administered: Acetaminophen 1000mg, Celebrex 400mg, and Gabapentin 300mg. An adductor canal block was then administered by the anesthesia team in the PACU. He was taken back to the operating room. A spinal anesthestic was then administered. The patient was placed into the supine position on the operating room table. A nonsterile tourniquet was placed high onto the leg but only used for cementing. Posts were placed for positioning during the procedure. All bony prominences were well padded. Prophylactic antibiotics in the form of Cefazolin were administered. 1g of Tranxemic Acid was given intravenously within 30 minutes of incision. The left leg was then prepped with Chloraprep and draped in a standard fashion with impervious stockinette. A second prep with Chloraprep was performed prior to application of Iodine impregnated skin protection. A timeout to confirm correct identity, side and site, procedure, allergies, anesthesia, and medical concerns was performed. With the knee in some flexion, a midline incision was made overlying the knee. Full thickness skin flaps were raised once the extensor mechanism was encountered. These were raised medially and laterally. Any bleeding was controlled with electrocautery. Once the extensor mechanism was fully exposed, a medial parapatellar arthrotomy was performed in a flexed position. All bleeding from the arthrotomy and the geniculate arteries was coagulated. A medial subperiosteal peel was performed with electrocautery to the midcoronal plane. Due to the significant varus deformity the entire medial tibial plateau was exposed. The fat pad was removed while keeping the patellar tendon protected. The anterior distal femur synovium was removed for later visualization. The ACL and PCL were resected and the anterior horn of the lateral meniscus was transected. The knee was then flexed with the patella everted. Large osteophytes from the tibia were removed. Large osteophytes from the femur were removed. There was significant dropoff posteromedially with osteophytes in this posteromedial corner. Using a step drill, and based on preoperative templating, the femoral canal was entered. This was done with a step drill without any difficulty. The intramedullary distal femoral cut guide was inserted, set to a 5 degree valgus cut and 9mm cut thickness. The distal femoral cut guide was then held in position and pinned. With the soft tissues protected, the distal cut was performed. This was passed over a few times to ensure a planar cut. I then turned attention to the tibia. The extramedullary guide was placed onto the leg. The distal aspect was slid medial to adjust for position of center of ankle and stay in line with shaft of the tibia. Approximately 3-5 degrees of posterior slope was kept in the proximal cutting guide. The center of the guide was aligned with the PCL. The stylus was used to assess cut thickness. The medial side, most involved side, was set for a 2mm cut off of the low section of the posterior medial tibia. This was then held in position and pinned into place with 2 additional pins and a cross pin for stability. The medial and lateral collateral ligaments were protected and the cut was performed. With this completed, it was assessed and noted to be of appropriate dimensions. The guide was removed. A spacer block was inserted and the knee was brought into extension. The 7mm spacer block provided full extension, without hyperextension and with stability of both the medial and lateral collateral ligaments was assessed. The pins from the femur and the tibia were then removed. The distal femur was then sized. The anterior stylus was placed onto the lateral ridge of the anterior femur. This indicated a size 9 femur. The external rotation of the guide was adjusted to 3 degrees to match the epicondylar axis, perpendicular to Ritika?s line. The 4-in-1 cutting guide was the placed. The posterior medial femur cut was evaluated and appeared of good thickness. The spacer block was inserted underneath the cutting guide and stability was confirmed in 90 degrees of flexion. An richmond wing was used to confirm appropriate position of the anterior cut to avoid notching. This cutting guide was ensured to be flush on the cut surface and then pinned into place with headed pins. While protecting the soft tissues, quad tendon, and collateral ligaments, the anterior and posterior cuts were performed with a saw. The central two pins were removed and the posterior and anterior chamfers were cut next. The notch-cutting guide was placed. This was pinned to lateralize the femoral component as much as possible while keeping it flush on the cut surface. This was then pinned into position. A reciprocating saw was used to make the notch cut. A rasp smoothed the cut surfaces. The medial and lateral menisci were removed. A trial femoral component was then inserted, impacted down to the cut surfaces, and the lug holes were drilled. A provisional trial tibial component was placed and the knee was brought through range of motion. The polyethylene was trialed until there was good flexion and extension with excellent stability to the medial and lateral collaterals. The patella was tracking without thumbs. A size 7mm polyethylene component provided the best range of motion and stability with less than 2mm gapping with medial and lateral stress and full extension without significant hyperextension. The tibial cut surface was fully exposed. The tibia was then sized as a 8. The tibia had been previously marked during trialing to correspond to the center of the tibial component to help with rotation. The trial was aligned to this silvia, approximately rotated to the medial 1/3rd of the tibial tubercle. The trial was pinned into place. The tibia was prepared with a reamer and a keel punch and lug holes. The knee was then brought into extension and the patella was measured as 31mm. Using the patellar clamp and cut guide, this was resected to a flat surface with at least 13mm of thickness remaining. The size 41 patella fit the best. This was oriented and then clamped into position. The lugs were drilled. The trial components were removed. The final components were opened on the back table. The periosteal and capsular tissues, especially posteriorly, around the knee were then systematically injected with a periarticular cocktail consisting of 50cc 0.25% Marcaine, 30mg Ketorolac, 20cc of Exparal and 50cc of injectable saline. The knee was thoroughly irrigated with a pulse lavage and dried. Irrisept was also used to irrigate the tissues. On the back table, with the implants opened, the cement was mixed. One batch of high viscosity cement was prepared with vacuum assistance. After the cement was ready a small amount was placed on the cut surface of the patella and the patellar button was clamped into position and held. While the cement was hardening, the cementless knee components were placed. Starting with the tibial component, the tibia was subluxed anteriorly and the lug holes of the component were lined up. The tibia was then impacted with an impactor and mallet until the tibial component was in contact with the tibia. The final polyethylene component was inserted. Then, the femoral component was inserted. The lug holes were aligned and the component was impacted into position. The knee was irrigated with Irrisept chlorhexadine solution. This was allowed to sit in the knee for 3 minutes. After the cement had finally cured, approximately 15min, the clamp was removed from the patella and the knee was taken through range of motion. The patella was tracking with a no-thumbs technique. The capsule was then reapproximated with a No. 1 Vicryl at multiple locations. The capsule was finally closed with a No. 2 Stratafix, barbed suture. The second dosing of 1g TXA was started. Deep tissues were then reapproximated with 0 Vicryl and 2-0 Vicryl. The skin was closed with a running 3-0 Monocryl in a subcuticular fashion. This was reinforced with skin glue. A Mepilex silver dressing was applied along with a [id number] OSCAR wrap. A CryoCuff was applied. Alonso was transferred to the hospital bed without difficulty an suffering no apparent complication. Alonso has a good prognosis. Physical therapy will start today and without restrictions, weight-bearing as tolerated. Aspirin 81mg BID will be used for DVT prophylaxis.
== END 2021-01-10 13:30 | disposition home or self-care (01) ==
PROVIDERS: PCP Family Medicine; Visit Provider Student in an Organized Health Care Education/Training Program
PROC: (CPT 27447; principal; 2021-01-10 07:45)
DX: M17.12 Unilateral primary osteoarthritis, left knee (principal); I10 Essential (primary) hypertension; E78.5 Hyperlipidemia, unspecified; F17.210 Nicotine dependence, cigarettes, uncomplicated; G62.9 Polyneuropathy, unspecified
CPT/HCPCS: 27447; 97162; J0690; J1885; J2001; J2250

== ENCOUNTER 2021-01-25 09:55 | Outpatient (CLI) | payer BC, MEDICARE, SELFPAY ==
--- NOTE | 2021-01-25 08:30 | DI.RAD_ITS ---
Exam(s) XR KNEE LT 1V XR STANDING ALIGNMENT EXAM: XR STANDING ALIGNMENT and XR knee LT 1 V CLINICAL HISTORY: 1ST POST OP L TKA. TECHNIQUE: 2D digital imaging was performed. COMPARISON: CR XR STANDING ALIGNMENT from 11/20/2020 FINDINGS: Since the prior examination the patient has undergone a left total knee replacement. The orthopedic hardware in the left knee appears in good position. No lucencies are seen in or about the orthopedic hardware. There is mild soft tissue swelling around the knee. No significant joint effusion is see n. Atherosclerosis is present. There is an old right total knee replacement. Mild bilateral joint space narrowing is seen at the vt ps. The ankles are well maintained. The left lower extremity measures 95 cm. The right lower extremity measures 96.1 cm. SOFT TISSUE: Atherosclerosis. IMPRESSION: Interval placement of a left total knee replacement. DATA REPOSITORY: RADIATION DOSE DELIVERED:
--- NOTE | 2021-01-25 08:30 | DI.RAD_ITS ---
Exam(s) XR KNEE LT 1V XR STANDING ALIGNMENT EXAM: XR STANDING ALIGNMENT and XR knee LT 1 V CLINICAL HISTORY: 1ST POST OP L TKA. TECHNIQUE: 2D digital imaging was performed. COMPARISON: CR XR STANDING ALIGNMENT from 11/20/2020 FINDINGS: Since the prior examination the patient has undergone a left total knee replacement. The orthopedic hardware in the left knee appears in good position. No lucencies are seen in or about the orthopedic hardware. There is mild soft tissue swelling around the knee. No significant joint effusion is see n. Atherosclerosis is present. There is an old right total knee replacement. Mild bilateral joint space narrowing is seen at the nh ps. The ankles are well maintained. The left lower extremity measures 95 cm. The right lower extremity measures 96.1 cm. SOFT TISSUE: Atherosclerosis. IMPRESSION: Interval placement of a left total knee replacement. DATA REPOSITORY: RADIATION DOSE DELIVERED:
== END 2021-01-25 09:56 | disposition home or self-care (01) ==
LOC: DIORS 09:56
PROVIDERS: PCP Family Medicine; Referring Provider Family Medicine; Visit Provider Student in an Organized Health Care Education/Training Program
DX: Z96.652 Presence of left artificial knee joint (principal); Z47.1 Aftercare following joint replacement surgery; M16.0 Bilateral primary osteoarthritis of hip; M79.89 Other specified soft tissue disorders
CPT/HCPCS: 73560; 77073

== ENCOUNTER 2021-02-19 02:29 | Outpatient (CLI) | payer BC, MEDICARE, SELFPAY ==
[2021-02-19 11:04] LABS: Source Nasal/Nares
[2021-02-19 13:28] LABS: COVID-19 PCR Negative (Negative)
== END 2021-02-19 02:30 | disposition home or self-care (01) ==
LOC: LBO 02:30
PROVIDERS: PCP Family Medicine; Visit Provider Student in an Organized Health Care Education/Training Program
DX: Z20.822 Contact with and (suspected) exposure to COVID-19 (principal)
CPT/HCPCS: 87635

== ENCOUNTER 2021-02-20 11:25 | Day surgery (SDC) | payer BC, MEDICARE, SELFPAY ==
[2021-02-20] VITALS (7 sets, daily range): BP systolic 116–155; BP diastolic 61–86; PULSE 45–67; RESP 11–18; TEMP 36–36.4; O2SAT 95–98; BMI 37.8
--- NOTE | 2021-02-20 07:33 | W.PM.DSUDISC ---
Discharge Plan Disposition Patient Disposition: HOME Condition: Good Discharge Details Reason For Visit: (L) QUAD RUPTURE Attending Provider: David Forrester Primary Care Provider: Anshu Plaza Home Meds and New Rx's Prescriptions: New celecoxib [Celebrex] 200 mg capsule 200 mg PO BID Qty: 30 RF: 0 acetaminophen 500 mg tablet 500 mg PO Q6H PRN (Reason: pain) Qty: 60 RF: 2 oxycodone 5 mg tablet 5 mg PO Q6H PRN (Reason: severe post-operative pain) Qty: 12 RF: 0 Continued trazodone 100 mg tablet 200 mg PO HS Qty: 180 RF: 3 omeprazole 40 mg capsule,delayed release(DR/EC) 40 mg PO DAILY PRN (Reason: dyspepsia) Qty: 90 RF: 3 alprostadil 40 mcg kit 20 mcg IC PRN Qty: 1 RF: 12 rosuvastatin [Crestor] 20 mg tablet 20 mg PO HS Qty: 90 RF: 3 triamcinolone acetonide 0.5 % ointment 1 applic Topical BID PRN (Reason: rash on elbows) Qty: 30 RF: 2 sildenafil 100 mg tablet 100 mg PO DAILY PRN (Reason: sexual activity) Qty: 6 RF: 12 tadalafil [Cialis] 5 mg tablet 5 mg PO DAILY Qty: 90 RF: 3 docusate sodium [Colace] 100 mg capsule 100 mg PO BID Qty: 30 RF: 0 citalopram [Celexa] 20 mg tablet 20 mg PO HS RF: 0 tamsulosin 0.4 mg capsule 0.4 mg PO HS RF: 0 lisinopril 10 mg tablet 5 mg PO HS RF: 0 Myrbetriq 25 mg tablet extended release 24 hr 25 mg PO HS RF: 0 Discontinued celecoxib [Celebrex] 200 mg capsule 200 mg PO BID Qty: 30 RF: 0 acetaminophen 500 mg tablet 500 mg PO Q6H PRN (Reason: pain) Qty: 60 RF: 2 Discharge Instructions Additional Instructions: Quad Repair Status post Left TKA Discharge Instructions Activity: Rest and elevate the leg. Wear the knee immobilizer whenever you are weightbearing; you may walk with the use of crutches as tolerated. When you are sitting at rest you may remove the knee immobilizer for comfort. Dressing: Remove the Dexter wrap by 2 days after your surgery and put on the JUAN CARLOS stocking given to you from the hospital. Keep the surgical dressing (underneath the DEXTER wrap) in place for at least one week. After the first week it may be removed and replaced with light gauze and tape or nothing. The wound and dressing may get wet after 3 days but avoid soaking the dressing or otherwise it will need to be changed. Many people prefer covering the dressing with cling wrap (saran wrap) to minimize it from getting soaked. If it gets wet, just pat dry. If it starts to peel off then it will need to be changed. Medications: - You should take Tylenol and anti-inflammatory Celebrex as your primary pain control medications. If the Celebrex is too expensive or not covered, please call the office for another alternative (Advil/Ibuprofen or Naproxen/Aleve) - You have been prescribed a stronger pain medication Oxycodone for breakthrough pain, take as needed as prescribed. - If you have constipation you should take Colace or Miralax (both [id number]). It takes most people 3-4 days to have a bowel movement. Follow-up: 2 weeks If you have any acute concerns or questions, please do not hesitate to contact the office at [phone]. You may contact Dr. Forrester with any questions after hours through the hospital at [phone] or on his cell phone at [phone]. Referrals: David Forrester MD [ [facility] STAFF PHYSICIAN] - Equipment/Supplies: Partial Weight Bearing Crutches Activity:: Elevate Remove Dressings/Wound Care:: Do Not Remove Shower/Bathe:: Cover Diet:: As Tolerated Discharge Orders Discharge Orders: Discharge Order (Routine); Ordered 02/20/21 Ordered By: Josefina Hammond DS: Diagnosis Discharge Diagnosis (1) Traumatic rupture of left quadriceps tendon: Status: Acute (2) Status post total left knee replacement: Status: Acute
--- NOTE | 2021-02-20 10:02 | ANES.PREOP_ITS ---
General Info Date of Service Date Performed: 02/20/21 Height: 5 ft 9 in Weight: 116.12 kg Body Mass Index (BMI): 37.8 Surgical Procedure: Operation Date: 02/20/21 12:40 Proposed Procedures Side Surgeon p Knee Ruptured Quad Tendon Repair Left David Forrester MD Meds Allergies and Home Medications Allergies Allergy/AdvReac Type Severity Reaction Status Date / Time No Known Drug Allergies Allergy Verified 02/20/21 11:50 Home Medication Medication Instructions Recorded omeprazole 40 mg capsule,delayed 40 mg PO DAILY PRN #90 tab-cap 05/24/20 release trazodone 100 mg tablet 200 mg PO HS #180 tab 08/23/20 rosuvastatin 20 mg tablet 20 mg PO HS #90 tab 09/04/20 triamcinolone acetonide 0.5 % 1 applic TOPICAL BID PRN #30 gm 09/04/20 topical ointment sildenafil 100 mg tablet 100 mg PO DAILY PRN #6 tab 09/15/20 alprostadil 40 mcg intracavernosal 20 mcg IC PRN #1 ea 01/02/21 kit docusate sodium [Colace] 100 mg PO BID #30 cap 01/10/21 tadalafil 5 mg tablet 5 mg PO DAILY #90 tab-cap 01/31/21 Myrbetriq 25 mg PO HS 02/19/21 citalopram [Celexa] 20 mg PO HS 02/19/21 lisinopril 5 mg PO HS 02/19/21 tamsulosin 0.4 mg PO HS 02/19/21 acetaminophen 500 mg PO Q6H PRN #60 tab 02/20/21 ibuprofen 600 mg PO TID PRN #60 tab 02/20/21 oxycodone 5 mg PO Q6H PRN #12 tab 02/20/21 Current Visit Medications: Current Medications Generic Name Dose Route Start Last Admin Trade Name Freq PRN Reason Stop Dose Admin Acetaminophen 1,000 mg 02/20/21 06:00 Acetaminophen 500 Mg Tab PO 02/20/21 16:00 PREOP SALVATORE Acetaminophen 650 mg 02/20/21 07:31 Acetaminophen 325 Mg Tab PO Q4H PRN PRN Celecoxib 400 mg 02/20/21 06:00 Celecoxib 200 Mg Cap PO 02/20/21 16:00 PREOP SALVATORE Gabapentin 300 mg 02/20/21 06:00 Gabapentin 300 Mg Cap PO 02/20/21 16:00 PREOP SALVATORE Ringer's Solution 1,000 mls @ 80 mls/hr 02/20/21 06:00 IV 03/21/21 23:59 INFUSION SALVATORE Cefazolin Sodium 3,000 mg/ 100 mls @ 200 mls/hr 02/20/21 06:00 Sodium Chloride IVPB 02/20/21 18:00 PREOP SALVATORE Tranexamic Acid 1,000 mg/ 60 mls @ 360 mls/hr 02/20/21 06:00 Sodium Chloride IVPB 02/20/21 18:00 PREOP [facility] IV Miscellaneous Supplies 1 each 02/20/21 06:00 Iv Access IV 03/21/21 23:59 DIRECTED SALVATORE Oxycodone/Acetaminophen 1 tab 02/20/21 07:31 Oxycodone 5 Mg/Acetaminophen 325 Mg Tab PO Q4H PRN PRN Pain Sodium Chloride 0 ml 02/20/21 06:00 Normal Saline Flush 10 Ml Syr IV 03/21/21 23:59 PRN PRN Sodium Chloride 0 ml 02/20/21 06:00 Normal Saline 10 Ml Vial IJ 03/21/21 23:59 DIRECTED PRN Sterile Water 0 ml 02/20/21 06:00 Water,Injection,Sterile 10 Ml Vial IJ 03/21/21 23:59 DIRECTED PRN PFSH Active Problems Active Problems: Problem Status Onset Code Traumatic rupture of left quadriceps tendon S76.112A Status post total left knee replacement Z96.652 History of total right knee replacement 11/08/20 Z96.651 Bilateral foot pain M79.671, M79.672 Foot pain, left M79.672 Bilateral chronic knee pain M25.561, M25.562, G89.29 Lower urinary tract symptoms (LUTS) R39.9 Prostatitis N41.9 Hand arthritis M19.049 Hypertension I10 Peripheral neuropathy G62.9 Status post arthroscopy of shoulder 11/07/14 Z98.890 Status post rotator cuff repair 11/07/14 Z98.890 Bilateral renal cysts N28.1 Gallbladder Problem K82.9 CAD (coronary artery disease) I25.10 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 MORALES History of total right knee replacement (11/08/20) DOS: 11/08/20 Rotator Cuff Repair 11/07/14; LEFT; DR MORALES 12/20/15; RIGHT; DR. MORALES Status post total left knee replacement DOS: 01/10/21 Tobacco Smoking/Tobacco Use Status: Former Tobacco Use Passive smoking exposure: Yes Second hand exposure: Yes Alcohol Alcohol Intake: former Substance Use Substance use: Socially Substance use type: marijuana Vital Signs and Lab Results Lab Results Blood Type / Crossmatch: No Data to Display Complete Blood Count: No Data to Display Complete Metabolic Panel: No Data to Display Liver Function Panel: No Data to Display Coagulation Panel: No Data to Display Cardiac Panel: No Data to Display Arterial Blood Gas: No Data to Display Venous Blood Gas: No Data to Display Pancreas Panel: No Data to Display Thyroid Panel: No Data to Display Infectious Disease: Coronavirus (COVID-19)(PCR) Negative (Negative) 02/19/21 10:20 02/19/21 Coronavirus 2019 Source Nasal/Nares 02/19/21 10:20 02/19/21 Blood Cultures: No Data to Display Toxicology Panel: No Data to Display Imaging and Studies Imaging and Studies Stress Test Summary: 05/07/16: [facility] [place]: Normal EF, Positive for stress induced ischemia, Echocardiogram Summary: July 11, 2010 EF 65% No valvular anomolies Cardiac Catheterization Summary: 05/13/16: [facility] [place]: Non obstructive CAD Anesthesia Assessment and Plan Anesthesia History Personal History: No History of Anesthesia Complications Family History: No Family History of Anesthesia Complications Exercise Tolerance Exercise Tolerance: Metabolic Equivalents>4 Pertinent Negatives Pertinent Negatives: No Symptoms of GERD Cardiac & Pulmonary Exam Cardiac Exam: Normal S1/S2 Heart Sounds Pulmonary Exam: Clear Bilateral Breath Sounds Airway Exam Known Difficult Airway: No Mallampati Class: 2 Mouth Opening: Normal (> 3cm) Thyromental Distance: Greater than 3 cm Neck Range of Motion: Full ROM Neck Circumference: Normal Teeth Condition: Normal Dentition ASA Classification ASA Score: ASA 2 Emergency Case?: No NPO Status NPO Status: NPO Clears >2 hours, Solids >8 hours Anesthesia Plan Resuscitation Status: Full Code Anesthesia Technique: General Anesthesia Airway Planned: LMA Pain Management: Surgeon and patient request nerve block Monitors Used: Standard Monitors
[2021-02-20] MEDS: Acetaminophen 500 MG TAB 1000 MG PO (12:14)
[2021-02-20] MEDS: Gabapentin 300 MG CAP PO (12:14)
[2021-02-20] MEDS: Celecoxib 200 MG CAP 400 MG PO (12:14)
[2021-02-20] MEDS: Lactated Ringers 1,000 ML 80 ML IV (12:15)
--- NOTE | 2021-02-20 14:04 | NUR.NOTE ---
Pt with nerve block completed by Kaushal Ornelas CRNA at 1403, pt tolerated well. Pt interacting calmly with this nurse and looking at cell phone. Vitals at 1408: 36.2, 120/88, 98% on RA, 16, HR: 55. This nurse at bedside during nerve block and for 10min. post procedure. Call [place] within reach, pt aware. Nurse will continue to monitor.
[2021-02-20] MEDS: ceFAZolin 3,000 MG in Normal Saline 100 ML 200 MG IVPB (14:45)
[2021-02-20] MEDS: Ketorolac 30 MG/ML VIAL (15:25)
[2021-02-20] MEDS: Bupivacaine 0.25% Pres-Free 30 ML VIAL (15:25)
--- NOTE | 2021-02-20 16:56 | W.ANESPOSTOP ---
Postoperative Evaluation Date, Time and Location Date Performed: 02/20/21 Time Performed: 16:56 Patient Location: PACU Vital Signs Most Recent Imported Vital Signs: Most Recent Vital Signs Temp Pulse Resp BP Pulse Ox 36.1 C L 49 L 12 154/80 H 97 02/20/21 16:45 02/20/21 16:45 02/20/21 16:45 02/20/21 16:45 02/20/21 16:45 Pain Score Most Recent Pain Score: Most Recent Pain Score Pain Level 0 02/20/21 16:45 Assessment Mental Status: Arousable with meaningful communication Airway and Respiratory Function: Patent airway with normal (patient baseline) respiratory exam Cardiovascular Function: Hemodynamically Stable Hydration Status: Adequately Hydrated Nausea & Vomiting: No Nausea or Vomiting Pain: Pt. Denies Any Pain Peripheral Nerve Block: Regional nerve block not resolved at time of post operative discharge
--- NOTE | 2021-02-20 17:24 | W.ANESNERVE ---
Nerve Block Single Injection Procedure Date and Time Date Performed: 02/20/21 Procedure Start: 13:50 Location Where Procedure Performed Procedure Location: Day Surgery Unit Reason Performed: Postoperative Analgesia Requesting Provider: David Forrester Timeout Performed Timeout Performed: Yes Monitoring Used ECG, Blood Pressure, SpO2 and See EMR for corresponding vital signs Sterility Sterility: Hand Hygiene, Surgical Cap, Surgical Mask, Sterile Gloves and Chlorhexidine Sedation Given During Procedure Sedation Given (Indicate Dose Given): No Sedation given Patient Mental Status Patient Mental Status: Awake Nerve Block 1st Nerve Block: Laterality: Left Block Type: Adductor Canal Needle / Catheter Used: 100mm SonoPlex II Local Anesthetic Bolus (Indicate Dose Given): Lidocaine used for local infiltration of skin, Injected in 3-5ml increments after negative blood aspiration and Bupivacaine 0.25% Dose:: 20ml Additives (Indicate Dose Given): None Ultrasound: Sterile probe cover and gel used Ultrasound Image Saved?: Yes Nerve Stimulator: Not Used Paresthesia: None Procedure Tolerated: No Complications and Patient tolerated well Procedure Outcome: Successful Performed By: Kaushal Ornelas
--- NOTE | 2021-02-20 22:53 | W.PM.OP ---
Date of service: 02/20/21 Time of Service: 15:07 Operative Note Operative Note DATE OF PROCEDURE: 02/20/21 PRE-OP DIAGNOSIS: Left Quadriceps/Arthrotomy Rupture in Total Knee POST-OP DIAGNOSIS: same PROCEDURE: Quadriceps and arthrotomy repair, left knee SURGEON: David Forrester MICROWAVE ENGINEER: Josefina Hammond ANESTHESIA TYPE: General LMA/ETT Refer to Anesthesia Record ESTIMATED BLOOD LOSS: 25 PATHOLOGY: none sent TOURNIQUET TIME: 0 COMPLICATIONS: None Patient was transported to: PACU Patient's condition: stable Indications: Alonso is a 65-year-old who underwent a left knee replacement approximately 7 weeks ago. He had been doing quite well and is very happy with the progress he is making with the left knee. He was working to attach a trailer hitch and was in somewhat contorted and squatted position when he went to move and felt a pop in his left knee. He had a notable deformity. He had continued pain. He was seen in the office for an urgent visit where he was diagnosed with a rupture of his quadriceps and arthrotomy from his knee replacement. Given this traumatic event I recommended operative fixation of the rupture. I discussed treatment options to include continued nonoperative treatments. However, he, given his active lifestyle, preferred proceed with definitive fixation. I reviewed risk of the procedure to include bleeding, infection, pain, stiffness, weakness, need for repeat procedures, rerupture retear, blood clot. Despite these risk, he elects to proceed. Findings: There is a complete dehiscence of the arthrotomy from the midportion of patella through the quadriceps and into the vastus lateralis. The inferior portion from the mid patella to the tibia was intact. There is no signs of infection. The tissue quality was quite good and was debrided down and then repaired with FiberWire suture. Procedure Description: Alonso was greeted in the preoperative holding area where the correct side was identified and marked. The consent was reviewed with the patient and signed. The history and physical was updated. All questions were answered. Preoperative mediacations were administered: Acetaminophen 1000mg, Celebrex 400mg, and Gabapentin 300mg. An adductor canal block was then administered by the anesthesia team in the PACU. Alonso was taken back to the operating room. A spinal anesthestic was attempted but was not successful and thus he was converted to a general anesthetic. The patient was placed into the supine position on the operating room table. Posts were placed for positioning during the procedure. All bony prominences were well padded. Prophylactic antibiotics in the form of Cefazolin were administered. The left leg was then prepped with Chloraprep and draped in a standard fashion with impervious stockinette. A second prep with Chloraprep was performed prior to application of Iodine impregnated skin protection. A timeout to confirm correct identity, side and site, procedure, allergies, anesthesia, and medical concerns was performed. With the knee in some flexion, a midline incision was made overlying the knee utilizing the previous incision, not going as far distal but extending the incision proximally with the expectation of a proximal extension to the tear. Full thickness skin flaps were raised once the extensor mechanism was encountered. These were raised medially and laterally. There is an obvious defect of the quadriceps repair in the arthrotomy with a tapia of joint fluid. No purulence. No infectious material. Any bleeding was controlled with electrocautery. Medial lateral skin flaps were raised to fully evaluate the extensor mechanism. The defect was quite obvious. It ended about the midportion of patella with maybe some slight diastases at that level but by the inferior portion of the patella there was no defect. The proximal extent went through the quadriceps split and into the vastus lateralis. Using a curette and rongeur a debrided down any of the early scar formation to show tendinous material. Once the tendon was encountered it was able to be easily mobilized back over without significant tension and at 90 degrees of flexion. The knee was thoroughly irrigated with irrisept chlorhexidine solution. Once again, debridement was performed of any synovitis around the arthrotomy site and quadriceps repair site. The periosteal and capsular tissues were then systematically injected with a periarticular cocktail consisting of 50cc 0.25% Marcaine, 30mg Ketorolac, 20cc of Exparal. Using #2 FiberWire the arthrotomy and quadriceps split was repaired. This was done in interrupted fashion using [id number] and simple sutures. The tissue quality was excellent and there was great reapproximation of these tissues to each other and stable up to at least 100 degrees of flexion. There is no notable gapping of the arthrotomy site. Once again, the wound was thoroughly irrigated. Deep tissues were then reapproximated with 0 Vicryl and 2-0 Monocryl. The skin was closed with a running 3-0 Monocryl in a subcuticular fashion. This was reinforced with skin glue. A Mepilex silver dressing was applied along with a pczq-hv-zrusx OSCAR wrap. A CryoCuff was applied. Alonso was transferred to the hospital stretcher without difficulty an suffering no apparent complication. Alonso has a good prognosis. Aspirin 81mg BID will be used for DVT prophylaxis.
== END 2021-02-20 18:20 | disposition home or self-care (01) ==
LOC: SUR 11:25
PROVIDERS: PCP Family Medicine; Visit Provider Student in an Organized Health Care Education/Training Program
PROC: (CPT 27385; principal; 2021-02-20 12:30)
DX: S76.112A Strain of left quadriceps muscle, fascia and tendon, initial encounter (principal); X50.0XXA Overexertion from strenuous movement or load, initial encounter; T81.32XA Disruption of internal operation (surgical) wound, not elsewhere classified, initial encounter; I10 Essential (primary) hypertension; E78.5 Hyperlipidemia, unspecified; G62.9 Polyneuropathy, unspecified; F17.210 Nicotine dependence, cigarettes, uncomplicated; T84.89XA Other specified complication of internal orthopedic prosthetic devices, implants and grafts, initial encounter; Z96.652 Presence of left artificial knee joint
CPT/HCPCS: 27385; 13160; J0690; J1100; J1885; J2405; J2704

== ENCOUNTER 2021-09-21 16:16 | Outpatient (CLI) | payer BC, MEDICARE, SELFPAY ==
[2021-09-21 16:28] LABS: Potassium 3.9 mmol/L (3.5-5.1)
[2021-09-21 16:49] LABS: Hemoglobin A1C 5.4 % (<5.7)
== END 2021-09-21 16:17 | disposition home or self-care (01) ==
LOC: LBO 16:18
PROVIDERS: PCP Family Medicine; Visit Provider Family Medicine
DX: I10 Essential (primary) hypertension (principal); R73.9 Hyperglycemia, unspecified
CPT/HCPCS: 36415; 82565; 83036; 84132

== ENCOUNTER → 2021-10-11 01:57 | Outpatient (CLI) | payer BC, MEDICARE, SELFPAY ==
--- NOTE | 2021-10-11 07:30 | DI.NM_ITS ---
APPROVED REPORT Exam: Exercise Treadmill Patient Location: Out-Patient Room/Bed: Stress Nurse: Ayesha Sandhu RN Ordering Provider:THIERNO PADILLA, Contact Number: [phone] BMI: 38.53 Baseline Rhythm: Sinus Rhythm Comment: Ventricular couplets/ventricular bigeminy Indications: Left arm pain, chest pain Medical History Medical History: HTN, HLD, peripheral neuropathy, peripheral neuralgia, CAD, Anxiety, former smoker, family hx Cardiac Medications: Lisinopril, Omeprazole, Rosuvastatin, Sildenafil, Tadalafil Allergies: No known drug allergies Cardiac Risk Factors: Family hx, CAD, HTN, former smoker, HLD Previous Cardiac Procedures: PCI no stents Pretest Chest Pain Characteristics: none Exercise History: Sedentary Physical Disabilities: none Lung Sounds: Clear to auscultation Heart Sounds: Regular Stress Test Details Test: Exercise stress testing was performed using a Glen protocol. Nuclear Acquisition: Rest Tc-99m/Stress Tc-99m 1 day Rest Isotope: Tc-99m Sestamibi. Dose: 12.5 Date: 10/11/2021 Injection Time: 0850 Stress Isotope: Tc-99m Sestamibi. Dose: 37.0 Date: 10/11/2021 Injection Time: 1010 HR Resting HR Supine: 60 bpm Max Heart Rate (APMHR): 152.119971 bpm Resting HR Standin bpm Target HR (85% APMHR): 129.947279 bpm Max HR Achieved: 150 bpm % of APMHR: 98.68 Recovery HR: 82 bpm HR response to stress: Normal HR response to stress BP Resting BP Supine: 124/74 mmHg Resting BP Standin/70 mmHg Max BP: 172/80 mmHg Recovery BP: 128/70 mmHg BP response to stress: Normal blood pressure response to stress. ECG Resting ECG: Sinus Rhythm Ectopy: PVCs, ventricular couplets, ventricular bigeminy Stress ECG: Sinus Tachycardia ST Change: No significant ST segment changes noted Arrhythmia: Multifocal PVCs, couplets, ventricular bigeminy, 4-beat run of Non-sustained VT Recovery ECG: Sinus Rhythm Recovery ST Change: No significant ST segment changes noted Recovery Arrhythmia: VPC, ventricular couplets, ventricular bigeminy. Clinical Reason for Termination: Dyspnea Stress Symptoms: Dyspnea Exercise duration: 7 min28 sec Highest Stage Reached: Stage 3: 3.4 mph at 14% grade. Exercise capacity: 9.31 METs Rate Pressure Product: 14054 Stress ECG Conclusion 1. Resting electrocardiogram showed a nonspecific interventricular conduction delay 2. Patient exercised on the Glen protocol and completed a workload of 9.31 METS, limited by dyspnea 3. Normal heart rate and blood pressure response to exercise. The patient achieved 98% of predicted heart rate for age 4. The electrocardiographic portion of the test showed no evidence of myocardial ischemia 5. PVCs were noted 6. See MPI report Stress Test Summary STAGE Time (mins) Speed (mph) Grade (%) HR BP SYMPTOMS METS Supine 60 124/74 Standing 56 124/70 1 3 1.7 10 150/70 4.6 2 6 2.5 12 160/78 7 1 min recovery 88 172/80 3 min recovery 84 156/78 6 min recovery 82 128/70 MPI Conclusion Myocardial perfusion is normal without ischemia or evidence of prior infarction LV appears mildly dilated. EF is reported to be 36% with global hypokinesis Suggest echocardiogram to better assess LV function and wall motion Radiologist Interpretation Radiologist agrees with [employer]'s Interpretation. Radiologist Interpretation by: Anupama Green MD Interpretation Date/Time: 10/11/2021 16:44:03
== END ==
PROVIDERS: PCP Family Medicine; Visit Provider Family Medicine
DX: R07.89 Other chest pain (principal)
CPT/HCPCS: 78452; 93017

== ENCOUNTER → 2021-11-05 00:39 | Outpatient (CLI) | payer BC, MEDICARE, SELFPAY ==
--- NOTE | 2021-11-05 15:36 | DI.US_ITS ---
APPROVED REPORT EXAM: Comprehensive 2D, Doppler, and color-flow Echocardiogram Patient Location: Out-Patient Performance Tester: Chary Dunlap RDCS (AE) Indications: LVH, HTN Other Information Study Quality: Fair. Technically limited study due to body habitus. Conclusion Normal left ventricular wall thickness and chamber size. Estimated ejection fraction is 55 to 60%. Wall motion is normal Normal right ventricular size and systolic function Both atria are normal in size There is no structural or hemodynamically significant valvular disease Mildly dilated ascending aorta measuring 3.84 cm Wall motion Left Ventricle The left ventricle is normal size. The left ventricular systolic function is normal. The left ventric ular ejection fraction is within the normal range. There is normal left ventricular wall thickness. T here is normal LV segmental wall motion. There is no ventricular septal defect visualized. LVEF is 55 -60%. Right Ventricle Right ventricle is grossly normal in size. Right ventricular systolic function is grossly normal. Atria The left atrium size is normal. The right atrium size is normal. The interatrial septum is intact wit h no evidence for an atrial septal defect. Aortic Valve The aortic valve is normal in structure. Aortic valve is probably trileaflet. There is no aortic valv ular stenosis. No aortic regurgitation is present. Mitral Valve The mitral valve is normal in structure. No evidence of mitral valve stenosis. Trace mitral regurgita tion. Tricuspid Valve The tricuspid valve is normal in structure. There is no tricuspid valve stenosis. Trace tricuspid reg urgitation. Pulmonic Valve Pulmonic valve is not well visualized. There is no pulmonic valvular stenosis. There is no pulmonic v alvular regurgitation. Great Vessels The aortic root is normal in size. The ascending aorta is mildly dilated.3.84 cm Aortic arch is not w ell visualized. IVC is normal in size and collapses >50% with inspiration. Pericardium There is no pericardial effusion. 2D Dimensions IVSD d PLAX 1.17 cm M: 0.6-1.2 LV Vol A2C d MOD 114.6 mL LVPW d PLAX 1.16 cm M: 0.6 - 1.2 LV Vol A4C d MOD 159.2 mL LVID d PLAX 5.09 cm M: 4.2 - 5.8 LA vol/ BSA A2C s A-L 21.5 mL/m2 LVDs 3.55 cm M: 2.5 - 4.0 LA vol/ BSA A4C s A-L 28.5 mL/m2 Ao Root d 2.71 cm M: 3.1 - 3.7 LA Vol/ BSA Biplane s A-L 27.3 mL/m2 RA Area A4C 18.40 cm2 LA Area A4C s MOD 21.07 cm2 RA Vol/ BSA A4C s A-L 24.6 mL/m2 LA Area A2C s MOD 16.58 cm2 Ao Asc Diam d 3.84 cm M: 2.6 - 3.4 LV EF A4C MOD 57.8 % LV EF Teichholz 56.7 % LV EF A2C MOD 55.8 % LVEF (Marquez's) 54.76 % M: 52 - 72 LV EF Biplane MOD 54.8 % LV Volume 96.91 mL M: 62 - 150 SV 73.92 mL LV Volume Index 42.31 mL/m2 M: 34 - 74 SV Index 32.21 mL/m2 LV Vol Biplane MOD 135.0 mL FS 29.80 % M-Mode TAPSE 1.93 cm (M/F) >1.7 LV Diastology MV E' medial 0.067 (>0.07 m/s) E/A Ratio 0.9 LV E/e MED 8.80 (<14) MV E Vmax 0.60 (0.4-1.3 m/s) MV E' lateral 0.059 (>0.1 m/s) MV A Vmax 0.70 (0.4-1.3 m/s) LV E/e LAT 10.15 (<14) MV E/A Ratio 0.84 MV E/E' medial 8.84 MV E/E' lateral 10.17 Aortic Valve LVOT Area 2.99 cm2 AoV Area Vmax 1.49 cm2 LVOT Vmax 0.95 m/s AoV Area/ BSA (Vmax) 0.65 cm2/m2 LVOT Mean Kenneth. 0.59 m/s SAMI Mean Kenneth. 1.27 cm2 LVOT Peak Grad 3.6 mmHg SAMI Mean Kenneth. Index 0.55 cm2/m2 LVOT Mean Grad 1.7 mmHg LVOT VTI 0.216 m LVOT Diam s 1.95 cm AoV Vmax 1.90 m/s Velocity Ratio 0.50 AoV Mean Kenneth. 1.38 m/s AoV Peak Grad 14.4 mmHg LVOT SV 64.42 mL AoV Mean Grad 8.3 mmHg AoV VTI 0.397 m AoV Area VTI 1.62 cm2 AoV Area/ BSA (VTI) 0.71 cm/m2 Mitral Valve MV DT 350 (160-240 msec) MV PHT 102 msec MV Area PHT 2.17 cm2 MV VTI 0.320 m MV Area VTI 2.01 (4.0-6.0 cm2) Pulmonary Valve PV Vmax 1.16 (0.5-1.5 m/s) RVOT Peak Gr. 1.51 mmHg PV Peak Grad 5.4 mmHg RVOT Mean Gr. 0.85 mmHg PV Mean Grad 3.2 mmHg RVOT VTI 0.141 m PV VTI 0.312 m RVOT Vmax 0.61 m/s
== END ==
PROVIDERS: PCP Family Medicine; Visit Provider Family Medicine
DX: I10 Essential (primary) hypertension (principal)
CPT/HCPCS: 93306

== ENCOUNTER 2022-02-22 08:42 | Outpatient (CLI) | payer BC, MEDICARE, SELFPAY ==
--- NOTE | 2022-02-22 08:30 | DI.RAD_ITS ---
Exam(s) XR KNEE LT 2V AP,LAT EXAM: XR KNEE LT 2V AP,LAT CLINICAL HISTORY: ANNUAL F/U L TKA. TECHNIQUE: 2D digital imaging was performed. COMPARISON: CR XR KNEE LT 1V from 01/25/2021 FINDINGS: Two views: Stable position alignment of components of prosthesis. No fracture nor loosening evident. IMPRESSION: Stable appearance. DATA REPOSITORY: RADIATION DOSE DELIVERED:
== END 2022-02-22 08:43 | disposition home or self-care (01) ==
LOC: DIORS 08:43
PROVIDERS: PCP Family Medicine; Referring Provider Family Medicine; Visit Provider Student in an Organized Health Care Education/Training Program
DX: Z96.652 Presence of left artificial knee joint (principal)
CPT/HCPCS: 73560

== ENCOUNTER 2022-04-26 01:31 | Outpatient (CLI) | payer BC, MEDICARE, SELFPAY ==
--- NOTE | 2022-04-26 09:40 | DI.MRI_ITS ---
Exam(s) MR UPPER JOINT LT WO EXAM: MR UPPER JOINT LT WO CLINICAL HISTORY: left shoulder pain/weakness,m25.512. TECHNIQUE: Multiplanar multisequence MRI was performed. COMPARISON: None. FINDINGS: BONES: There is no fracture or contusion pattern. Evidence of previous surgery with multiple low sign al linear densities. Prominent spurring at the inferior humeral head. Spurring at the tip of the ac romion. JOINTS:The acromioclavicular joint shows some degenerative changes and high signal. The glenohumeral joint shows some fluid. TENDONS: Supraspinatus: Full-thickness tear with retraction of the supraspinatus tendon to the level of the g lenoid. Humeral head articulates with the undersurface of acromion. Severe supraspinatus muscle atr ophy. Goutallier grade 4. Infraspinatus: Severe infraspinatus muscle atrophy. The tendon is not well seen could also be torn a nd retracted. Subscapularis: Thickening and intermediate signal consistent with tendinosis. . Teres [place]: Unremarkable. Biceps and [place]: Biceps tendon not seen, presumed torn and retracted. GLENOID LABRUM: Degenerative changes. SOFT TISSUES: Unremarkable. OTHER: Subacromial and subdeltoid bursae no small amount of fluid. IMPRESSION: Full-thickness tears with retraction of the supraspinatus and supraspinatus tendons with severe muscl e atrophy. Biceps tendon not seen, presumed torn and retracted. Subscapularis tendinosis. Degenerative changes of the glenohumeral joint and AC joint. DATA REPOSITORY:
== END 2022-04-26 01:51 ==
LOC: DI 01:32
PROVIDERS: PCP Family Medicine; Visit Provider Family Medicine
DX: M25.512 Pain in left shoulder (principal); M75.102 Unspecified rotator cuff tear or rupture of left shoulder, not specified as traumatic; M62.512 Muscle wasting and atrophy, not elsewhere classified, left shoulder; S46.212A Strain of muscle, fascia and tendon of other parts of biceps, left arm, initial encounter; M19.012 Primary osteoarthritis, left shoulder; X58.XXXA Exposure to other specified factors, initial encounter
CPT/HCPCS: 73221

== ENCOUNTER 2022-04-30 14:47 | Outpatient (CLI) | payer BC, MEDICARE, SELFPAY ==
--- NOTE | 2022-04-30 14:15 | DI.RAD_ITS ---
Exam(s) XR SHOULDER LT COMPLETE 2+V EXAM: XR SHOULDER LT COMPLETE 2+V CLINICAL HISTORY: left rotator cuff tear f/u. TECHNIQUE: 2D digital imaging was performed of the left shoulder. Two images were obtained. AP and axillary views were obtained. COMPARISON: MR MR UPPER JOINT LT WO from 04/26/2022 FINDINGS: BONES: No acute fracture is present. No bony destructive lesion is seen. There are postsurgical waller es seen in the proximal humerus. JOINTS: No dislocation present. There are moderate degenerative changes of the glenohumeral joint wit h joint space narrowing and marginal osteophytes. Mild degenerative changes are also seen at the acr omioclavicular joint. There is superior subluxation of the humeral head with narrowing of the acromi al humeral interval suspicious for chronic rotator cuff tear. SOFT TISSUE: Normal. IMPRESSION: Degenerative changes and postsurgical changes of the left shoulder as described above. DATA REPOSITORY: RADIATION DOSE DELIVERED:
== END 2022-04-30 14:48 | disposition home or self-care (01) ==
LOC: DIORS 14:48
PROVIDERS: PCP Family Medicine; Referring Provider Family Medicine; Visit Provider Student in an Organized Health Care Education/Training Program
DX: S46.012D Strain of muscle(s) and tendon(s) of the rotator cuff of left shoulder, subsequent encounter (principal); M19.012 Primary osteoarthritis, left shoulder
CPT/HCPCS: 73030

== ENCOUNTER 2022-09-25 02:51 | Outpatient (CLI) | payer BC, MEDICARE, SELFPAY ==
--- NOTE | 2022-09-25 07:45 | DI.CT_ITS ---
Exam(s) CT UPPER EXTREMITY LT WO EXAM: CT UPPER EXTREMITY LT WO CLINICAL HISTORY: ROTATOR CUFF ARTHROPATHY LT SHOULDER,TRAUMATIC TEAR LT RTC,M12.912,M75.102,. TECHNIQUE: Imaging Protocol: Axial computed tomography images with coronal and sagittal reformatted images were created and reviewed. COMPARISON: MR MR UPPER JOINT LT WO from 04/26/2022 CR XR SHOULDER LT COMPLETE 2+V from 04/30/2022 FINDINGS: Bones: The osseous structures and articular surfaces are intact. There are moderately severe degene rative changes seen at the glenohumeral joint characterized by joint space narrowing and bony hypertr ophy. Mild degenerative changes are seen at the acromioclavicular joint. The humeral head is superi yann located which can be seen with chronic rotator cuff tear. There are postsurgical changes seen i n the proximal humerus. No lytic or sclerotic lesions are identified. Soft Tissues: There is fatty atrophy of the supraspinatus and infraspinatus muscles. IMPRESSION: 1. Moderately severe degenerative changes of the glenohumeral joint with mild degenerative changes of the AC joint. 2. Postsurgical changes involving the humeral head. 3. Superior subluxation of the humeral head relative to the glenoid which can be seen with chronic ro tator cuff tear. 4. Fatty atrophy involving the supraspinatus and infraspinatus muscles. RADIATION DOSE DELIVERED: 827.65mGy.cm Total DLP 827.65mGy.cm Total DLP DATA REPOSITORY: All CT scans at this facility are submitted to the National Radiology Data Registry (NRDR) Dose Index Registry (DIR) with the [employer] ([employer]). RADIATION OPTIMIZATION: All CT scans at this facility use at least one of these dose optimization te chniques: automated exposure control; mA and/or kV adjustment per patient size (includes targeted exa ms where dose is matched to clinical indication); or iterative reconstruction.
== END 2022-09-25 03:11 ==
PROVIDERS: PCP Family Medicine; Visit Provider Student in an Organized Health Care Education/Training Program
DX: M19.012 Primary osteoarthritis, left shoulder; S46.012A Strain of muscle(s) and tendon(s) of the rotator cuff of left shoulder, initial encounter; Z98.890 Other specified postprocedural states; M62.512 Muscle wasting and atrophy, not elsewhere classified, left shoulder
CPT/HCPCS: 73200

== ENCOUNTER → 2022-10-09 13:48 | Outpatient (BNVA) | payer BC, MEDICARE, SELFPAY | PROVIDERS: PCP Family Medicine; Referring Provider Family Medicine; Visit Provider Student in an Organized Health Care Education/Training Program | CPT/HCPCS: 99213 ==

== ENCOUNTER → 2022-12-11 13:43 | Outpatient (BNVA) | payer BC, MEDICARE, SELFPAY | PROVIDERS: PCP Family Medicine; Referring Provider Family Medicine; Visit Provider Student in an Organized Health Care Education/Training Program | DX: M75.102 Unspecified rotator cuff tear or rupture of left shoulder, not specified as traumatic (principal); M12.812 Other specific arthropathies, not elsewhere classified, left shoulder | CPT/HCPCS: 99213 ==

== ENCOUNTER 2023-01-29 09:54 | Outpatient (CLI) | payer BC, MEDICARE, SELFPAY ==
[2023-01-29 12:42] LABS: CREATININE 1.1 mg/dL (0.70-1.30); Estimated GFR 72.67 (mL/min/1.73m2); Potassium 4.1 mmol/L (3.5-5.1)
[2023-01-29 12:50] LABS: Hemoglobin A1C 5.5 % (<5.7)
[2023-01-29 19:23] LABS: PSA, Screening 1.8 ng/mL (<=4.5)
== END 2023-01-29 09:55 | disposition home or self-care (01) ==
LOC: LOS 09:54
PROVIDERS: PCP Family Medicine; Referring Provider Family Medicine; Visit Provider Family Medicine
DX: E11.51 Type 2 diabetes mellitus with diabetic peripheral angiopathy without gangrene (principal); I70.209 Unspecified atherosclerosis of native arteries of extremities, unspecified extremity; I10 Essential (primary) hypertension; Z12.5 Encounter for screening for malignant neoplasm of prostate
CPT/HCPCS: 36415; 84153; 82565; 83036; 84132

== ENCOUNTER 2023-10-28 10:34 | Outpatient (CLI) | payer MEDICARE, SELFPAY ==
--- NOTE | 2023-10-28 10:30 | RT.EKG_ITS ---
APPROVED REPORT Exam: Resting ECG Reason for Exam: Dizziness Patient Location: O HR:43 bpm ECG Measurements Heart Rate 43 AXIS WY 163 P 66 QRSd 126 QRS -54 QT 483 T 9 QTc 409 Conclusion Sinus bradycardia...rate< 50 LAFB
== END 2023-10-28 10:35 | disposition home or self-care (01) ==
LOC: DI.CM 10:35
PROVIDERS: PCP Family Medicine; Visit Provider Family Medicine
DX: R07.89 Other chest pain (principal); I25.10 Atherosclerotic heart disease of native coronary artery without angina pectoris; I10 Essential (primary) hypertension
CPT/HCPCS: 93010

== ENCOUNTER → 2023-11-20 01:20 | Outpatient (CLI) | payer MEDICARE, SELFPAY ==
--- NOTE | 2023-11-20 07:00 | DI.NM_ITS ---
APPROVED REPORT Exam: Pharmacologic Patient Location: Out-Patient Room/Bed: Stress Nurse: Aby Ackerman RN Ordering Provider:THIERON PADILLA, Contact Number: [phone] BMI: 38.24 Baseline Rhythm: Sinus Bradycardia, LBBB Indications: Chest heaviness, strong family hx of CAD, chest pain, Medical History Medical History: HTN, anxiety, CAD, tobacco use, HLD, obesity, peripheral neuralgia Cardiac Medications: Aspirin, lisinopril, rosuvastatin, trazadone, omeprazole Allergies: NKA Cardiac Risk Factors: Family hx, HTN, HLD, former smoker, obesity Previous Cardiac Procedures: Cardiac Cath Pretest Chest Pain Characteristics: None Exercise History: Sedentary Physical Disabilities: None Lung Sounds: Clear to auscultation Heart Sounds: Bradycardia Stress Test Details Test: Pharmacologic stress was paired with low level exercise. Reason for pharmacologic stress test: LBBB. Nuclear Acquisition: Rest Tc-99m/Stress Tc-99m 1 day Rest Isotope: Tc-99m Sestamibi. Dose: 12.0 Date: 11/20/2023 Injection Time: 0850 Stress Isotope: Tc-99m Sestamibi. Dose: 36.0 Date: 11/20/2023 Injection Time: 1053 HR Resting HR Supine: 56 bpm Max Heart Rate (APMHR): 150.884123 bpm Resting HR Standin bpm Target HR (85% APMHR): 127.398787 bpm Max HR Achieved: 112 bpm % of APMHR: 74.67 Recovery HR: 73 bpm BP Resting BP Supine: 128/68 mmHg Resting BP Standin/64 mmHg Max BP: 130/55 mmHg Recovery BP: 120/80 mmHg ECG Resting ECG: Sinus Bradycardia, LBBB Ectopy: Occasional PVC's, couplets Stress ECG: Sinus Tachycardia, LBBB ST Change: Nondiagnostic low heart rate Arrhythmia: Occasional PVC's, couplets Recovery ECG: Sinus Bradycardia, LBBB Recovery ST Change: Nondiagnostic low heart rate Recovery Arrhythmia: Occasional PVC's Clinical Stress Symptoms: Mild SOB Angina Score: None Rate Pressure Product: 19929 Stress ECG Conclusion 1. Resting electrocardiogram showed a nonspecific IVCD 2. Patient underwent testing using a combination of low-level exercise and pharmacologic stress with regadenoson 3. Maximal heart rate achieved was 75% of predicted for age 4. The electrocardiographic portion of the test was nondiagnostic 5. See MPI report Stress Test Summary STAGE HR BP SpO2 Symptoms NOTES Supine 56 128/68 96 Standing 70 106/64 1 min post Lexiscan injection 108 130/55 96 Mild SOB 3 min post Lexiscan injection 95 110/60 95 6 min post Lexiscan injection 73 120/80 94 All symptoms resolved MPI Conclusion There is a small fixed apical defect. There is no myocardial ischemia Calculated EF is 42%. Visually appears higher, no wall motion abnormalities Radiologist Interpretation Radiologist agrees with [employer] Captain's Interpretation. Radiologist Interpretation by: Anupama Green MD Interpretation Date/Time: 11/23/2023 08:58:11
[2023-11-20] MEDS: Regadenoson 0.4 MG/5 ML SYR IVP (09:43)
== END ==
PROVIDERS: PCP Family Medicine; Visit Provider Family Medicine
DX: R07.9 Chest pain, unspecified (principal)
CPT/HCPCS: 78452; 93016; 93018; 93017; J2785

== ENCOUNTER 2024-02-03 08:20 | Outpatient (CLI) | payer MEDICARE, SELFPAY ==
[2024-02-03 13:19] LABS: ALT 25 U/L (16-63); AST 19 U/L (15-37); Alkaline Phosphatase 75 U/L (46-116); Anion Gap 9.2 mmol/L (3-11); BUN 28 mg/dL (7-18); Bilirubin, Total 0.55 mg/dL (0.2-1.0); CO2 28.8 mmol/L (21.0-32.0); CREATININE 1.2 mg/dL (0.70-1.30); Calcium 9.4 mg/dL (8.5-10.1); Calculated LDL 94 mg/dL (<100); Chloride 104 mmol/L (98-107); Cholesterol 158 mg/dL (<200); Estimated GFR 65.06 (mL/min/1.73m2); Glucose 101 mg/dL (74-106); HDL Cholesterol 42 mg/dL (40-60); Potassium 4.4 mmol/L (3.5-5.1); Sodium 142 mmol/L (136-145); Total Protein 7.9 g/dL (6.4-8.2); Triglyceride 112 mg/dL (<150)
[2024-02-03 16:35] LABS: Uric Acid 7.2 mg/dL (3.5-7.2)
== END 2024-02-03 08:21 | disposition home or self-care (01) ==
LOC: LOS 08:21
PROVIDERS: PCP Family Medicine; Referring Provider Family Medicine; Visit Provider Family Medicine
DX: R10.9 Unspecified abdominal pain (principal); M10.9 Gout, unspecified; E78.5 Hyperlipidemia, unspecified; M19.049 Primary osteoarthritis, unspecified hand
CPT/HCPCS: 36415; 80053; 80061; 84550

== ENCOUNTER → 2024-02-13 10:25 | Outpatient (BNVA) | payer MEDICARE, SELFPAY | PROVIDERS: PCP Family Medicine; Referring Provider Family Medicine; Visit Provider Urology | DX: N52.9 Male erectile dysfunction, unspecified (principal); N40.1 Benign prostatic hyperplasia with lower urinary tract symptoms; N13.8 Other obstructive and reflux uropathy | CPT/HCPCS: 99213 ==

== ENCOUNTER 2024-04-05 15:14 | Outpatient (CLI) | payer MEDICARE, SELFPAY ==
--- NOTE | 2024-04-05 14:53 | DI.RAD_ITS ---
Exam(s) XR HAND LT COMPLETE EXAM: XR HAND LT COMPLETE CLINICAL HISTORY: RING FINGER/LITTLE FINGER PAIN. TECHNIQUE: 2D digital imaging was performed. COMPARISON: No exams were available for comparison FINDINGS: 3 views No evidence of acute fracture. No subluxations. There is a partially healed oblique fracture in the diaphysis and head and neck of the proximal phala nx of the 4th finger. There are advanced degenerative changes in the DIP joints of the fingers including prominent [place] nodes on the dorsal aspects of the DIP joints. There appears to be an element of degenerative fusio n across the DIP joint of the 5th-little finger. Lesser degenerative changes are noted in the PIP joints and metacarpophalangeal joints. Moderate deg enerative changes are noted at the 1st carpometacarpal joint. IMPRESSION: Advanced degenerative changes in the DIP joints. There appears to be fusion across this joint in the 5th-subtle finger. Other findings as above. DATA REPOSITORY: RADIATION DOSE DELIVERED:
== END 2024-04-05 15:15 | disposition home or self-care (01) ==
LOC: DIORS 15:14
PROVIDERS: PCP Family Medicine; Referring Provider Family Medicine; Visit Provider Student in an Organized Health Care Education/Training Program
DX: M25.642 Stiffness of left hand, not elsewhere classified
CPT/HCPCS: 99214; 73130

== ENCOUNTER → 2024-04-09 11:08 | Outpatient (BNVA) | payer MEDICARE, SELFPAY | PROVIDERS: PCP Family Medicine; Referring Provider Family Medicine | DX: M65.342 Trigger finger, left ring finger (principal); M19.042 Primary osteoarthritis, left hand | CPT/HCPCS: 20550; J1010 ==

== ENCOUNTER 2024-09-21 12:38 | Outpatient (CLI) | payer MEDICARE, SELFPAY ==
[2024-09-21 23:46] LABS: Hepatitis C Ab w Rflx HCV PCR Negative (Negative)
== END 2024-09-21 12:39 | disposition home or self-care (01) ==
LOC: LBO 12:38
PROVIDERS: PCP Family Medicine; Visit Provider Family Medicine
DX: Z11.59 Encounter for screening for other viral diseases (principal)
CPT/HCPCS: 36415; 86803

== ENCOUNTER → 2025-02-04 10:46 | Outpatient (BNVA) | payer MEDICARE, SELFPAY | PROVIDERS: PCP Family Medicine; Referring Provider Family Medicine; Visit Provider Physician Assistant | DX: M65.342 Trigger finger, left ring finger (principal) | CPT/HCPCS: 20600; J1010 ==

== ENCOUNTER 2025-02-17 09:20 | Outpatient (CLI) | payer MEDICARE, SELFPAY ==
[2025-02-17 15:18] LABS: Potassium 4.1 mmol/L (3.5-5.1); Vitamin B12 312 pg/mL (193-986)
[2025-02-18 09:35] LABS: PSA, Diagnostic 2.1 ng/mL (<=6.5)
== END 2025-02-17 09:21 | disposition home or self-care (01) ==
LOC: LOS 09:20
PROVIDERS: Urology; PCP Family Medicine; Visit Provider Family Medicine
DX: N13.8 Other obstructive and reflux uropathy (principal); N40.1 Benign prostatic hyperplasia with lower urinary tract symptoms; I10 Essential (primary) hypertension; D64.9 Anemia, unspecified
CPT/HCPCS: 36415; 82565; 82607; 84132; 84153

== ENCOUNTER → 2025-03-01 00:23 | Outpatient (CLI) | payer MEDICARE, SELFPAY ==
--- NOTE | 2025-03-01 07:00 | DI.US_ITS ---
Exam(s) US CAROTID EXAM: US CAROTID CLINICAL HISTORY: assess for stenosis,tia,vision loss lt eye,g45.9. TECHNIQUE: Ultrasound carotids performed using grayscale, color-flow, and spectral Doppler imaging. COMPARISON: US US ECHOCARDIOGRAM from 11/05/2021 FINDINGS: CAROTID ARTERIES: There is some plaque evident at the level the carotid bulbs and proximal ICAs bilaterally. There are no elevated velocities on the right side. On the left side there is a mildly elevated velocity of 130 cm/sec in the proximal left ICA indicating moderate stenosis at this level.. VERTEBRAL ARTERIES: Antegrade flow demonstrated in both vertebral arteries.. Measurements: R Bulb: 98.4cm/s PS / 19.9cm/s ED R CCA: 74.6cm/s PS / 16.3cm/s ED R ECA: 159.9cm/s PS / 21.6cm/s ED R ICA Prox: 80.7cm/s PS / 23.7cm/s ED R ICA Mid: 72.4cm/s PS / 24.5cm/s ED R ICA Distal: 85.1cm/s PS /21.8cm/s ED R Vert: 52.5cm/s PS / 15.2cm/s ED R SVR: 1.3 R DVR: 1.2 L Bulb: 115.7cm/s PS / 35.7cm/s ED L CCA: 102.4cm/s PS / 25.2cm/s ED L ECA: 164.7cm/s PS / 16.6cm/s ED L ICA Prox: 130.2cm/s PS / 26.6cm/s ED L ICA Mid: 84.1cm/s PS / 27cm/s ED L ICA Distal: 71.4cm/s PS / 21.9cm/s ED L Vert: 44.7cm/s PS / 11.8cm/s ED L SVR: 1.3 L DVR: 1.1 IMPRESSION: There is plaque bilaterally at the carotid bulbs and proximal ICAs. Mildly elevated velocity on the left side at this level indicates the amount of stenosis is 50-69 percent. On the opposite-right side the amount of stenosis in the proximal ICAs less than 50 percent. Antegrade flow was demonstrated in both vertebral arteries in the neck. Criteria for Carotid Stenosis: Normal: ICA PSV <125 cm/s no plaque or intimal thickening is visible. <50% stenosis: ICA PSV <125 cm/s and plaque or intimal thickening is visible. 50-69% stenosis: ICA PSV is 125-250 cm/s and plaque is visible. >70% stenosis to near occlusion: ICA PSV >250 cm/s with visible plaque and luminal narrowing. DATA REPOSITORY:
== END ==
LOC: DI 00:24
PROVIDERS: PCP Family Medicine; Visit Provider Family Medicine
DX: G45.9 Transient cerebral ischemic attack, unspecified (principal); H54.62 Unqualified visual loss, left eye, normal vision right eye
CPT/HCPCS: 93880

== ENCOUNTER → 2025-03-03 12:48 | Outpatient (BNVA) | payer MEDICARE, SELFPAY | PROVIDERS: PCP Family Medicine; Referring Provider Family Medicine; Visit Provider Student in an Organized Health Care Education/Training Program | DX: M20.032 Swan-neck deformity of left finger(s) (principal) | CPT/HCPCS: 99213 ==